=== PATIENT | female | born 1990 | race Two or more races ===

== ENCOUNTER 2020-04-10 13:03 | Emergency (ER) | payer OTHER, SELFPAY ==
[2020-04-10 13:24] VITALS: BP 114/65; PULSE 81; RESP 17; TEMP 36.3; O2SAT 95; BMI 38.4
--- NOTE | 2020-04-10 13:49 | ED.GENADULT ---
HPI - General Adult General Chief complaint: General Medical Stated complaint: rash Time Seen by Provider: 04/10/20 13:46 Source: patient Mode of arrival: ambulatory Limitations: no limitations History of Present Illness HPI narrative: 29 y/o healthy female presenting with hives all over her arms that started this morning when she woke up. She states she had a small itchy patch on her face yesterday and took a benadryl with some improvement. She denies new lotions, creams, soaps or detergents but she did sleep at a friend's house on . complaint: rash Onset (ago): day(s) (1) Location: face and upper extremity Radiation: non-radiation Severity: moderate Quality: burning Pain Consistency: constant Relieving factors: cold therapy and medication Exacerbating factors: other (itching makes it worse ) Associated symptoms: denies other symptoms Treatments prior to arrival: none Related Data Previous Rx's Medication Instructions Recorded diphenhydramine HCl [Benadryl 50 mg PO Q6H PRN #10 tab 04/10/20 Allergy] prednisone 50 mg PO DAILY #5 tab 04/10/20 Allergies Allergy/AdvReac Type Severity Reaction Status Date / Time MOSQUITO BITE Allergy Intermediate BODY PART Uncoded 01/29/20 16:08 SWELLING hazelnuts and mosquitos Allergy Unknown itchy/ Uncoded 11/16/17 00:00 swelling mosquitoes Allergy Unknown severe Uncoded 10/01/18 00:00 local reaction Review of Systems Review of Systems: Constitutional: No Fever, No Chills ENT/Mouth: No sore throat, No Rhinorrhea, No Swallowing Difficulty Eyes: No Eye Pain, No Swelling, No Redness Cardiovascular: No Chest Pain, No SOB Respiratory: No Cough, No Sputum, No Wheezing, No dyspnea Gastrointestinal: No Nausea, No Vomiting, No Diarrhea, No abdominal Pain Musculoskeletal: No joint pain, No Myalgias Skin: No Skin Lesions, + rash Neuro: No Weakness, No Numbness, No Dizziness, No Headache Heme/Lymph: No Bruising, No Lymphadenopathy PMFSH Past Medical History Attestation statement: The following information was validated with the patient. Medical History No known health problems Social History Social History Advance Directives: No Advance Directives Information Provided: No Physical Exam Vital Signs: Vital Signs: Last Vital Signs Temp 97.4 F 04/10/20 13:24 Pulse 81 04/10/20 13:24 Resp 17 04/10/20 13:24 BP 114/65 04/10/20 13:24 Pulse Ox 95 04/10/20 13:24 Body Mass Index 38.4 Appearance: Alert. Oriented X3. No acute distress. HEENT: normal inspection CVS: Normal heart rate and rhythm. Pulses normal. Respiratory: No respiratory distress. Skin: Skin warm and dry. Normal skin color. Normal skin turgor.. Extremities: bilateral upper extremities with multiple areas of urticarial rash, erythematous and pruritus. Neuro: Oriented X 3. No motor deficit. No sensory deficit. Course Course Course Narrative: 29 y/o female presenting with UE hives after exposure to new bedding. No history of the same. No respiratory complaints, mouth/face swelling. Will give dose of Benadryl and Prednisone here and monitor. Reevaluation(s) Reevaluation #1: itching improved after benadryl and prednisone. stable for d/c. Discharge Plan Discharge Clinical Impression: Urticaria Patient Disposition: Home, Self-Care Instructions: Urticaria (ED) Additional Instructions: Use hypoallergenic soaps and detergents until the rash resolves. Do not use perfume or scented lotions. Take Benadryl every 6 hours until rash is resolved. Start taking the Prednisone tomorrow morning, you were given your 1st dose in the ER. Follow up with your doctor on Sunday. If you develop wheezing, shortness of breath, swelling of your lips or tongue, or any other concerning symptom come back to the ER for further evaluation. Prescriptions: New prednisone 50 mg tablet 50 mg PO DAILY Qty: 5 RF: 0 diphenhydramine HCl [Benadryl Allergy] 25 mg tablet 50 mg PO Q6H PRN (Reason: itching) Qty: 10 RF: 0 Interventions: ED Discharge Assessment Last Done: 04/10/20 14:11
[2020-04-10] MEDS: diphenhydrAMINE HCL 25 MG TABLET 50 MG PO (14:00)
[2020-04-10] MEDS: predniSONE 10 MG TABLET 50 MG PO (14:01)
== END 2020-04-10 14:13 | disposition home or self-care (01) ==
PROVIDERS: Emergency Provider Internal Medicine; PCP Nurse Practitioner Family
DX: L50.9 Urticaria, unspecified (principal); R21 Rash and other nonspecific skin eruption; Z79.899 Other long term (current) drug therapy
CPT/HCPCS: 99283; Q0163

== ENCOUNTER 2020-11-29 15:19 | Emergency (ER) | payer OTHER, SELFPAY ==
[2020-11-29 15:41] VITALS: BP 114/73; PULSE 76; RESP 18; TEMP 37.1; O2SAT 98; BMI 36.1
--- NOTE | 2020-11-29 17:03 | ED_ITS ---
HPI - Female Genitourinary General Chief complaint: Vaginal Bleeding Stated complaint: Vaginal bleeding Time Seen by Provider: 11/29/20 16:50 Source: patient Mode of arrival: ambulatory Limitations: no limitations History of Present Illness HPI Narrative: 30 y/o female who presents to the ER with 3 weeks of vaginal bleeding. She reports having a nuva ring placed by her PCP at [facility] 1 month ago. She started bleeding 1 week later. It started light and now is heavier. She has some intermittent lower abdominal cramping as well. She denies vaginal discharge. No lightheadedness, dizziness or SOB. She tried to take out the nuva ring but would not find it and thinks it got displaced. She last had sex after it was placed, but before she started bleeding. Denies it falling out. She has been feeling nauseated but has not vomited. Denies chance of . MD elicited complaint: vaginal bleeding Onset (ago): week(s) (3) Location of symptoms: vaginal Severity: moderate Female Urogenital Radiation: Non-Radiating Severity scale (1-10): 6 Quality of pain: aching Consistency: intermittent Vaginal discharge: none Vaginal bleeding: moderate Urinary symptoms: Dysuria and Hematuria Exacerbating factors: none Relieving factors: none Associated symptoms: nausea Treatment prior to arrival: none Sexual activity: Yes (3.5 weeks ago) Patient : No Related Data Previous Rx's Medication Instructions Recorded diphenhydramine HCl [Benadryl 50 mg PO Q6H PRN #10 tab 04/10/20 Allergy] prednisone 50 mg PO DAILY #5 tab 04/10/20 cefuroxime axetil 250 mg PO BID #10 tab 11/29/20 ondansetron HCl [Zofran] 4 mg PO Q8H PRN #7 tab 11/29/20 Allergies Allergy/AdvReac Type Severity Reaction Status Date / Time MOSQUITO BITE Allergy Intermediate BODY PART Uncoded 01/29/20 16:08 SWELLING hazelnuts and mosquitos Allergy Unknown itchy/ Uncoded 11/16/17 00:00 swelling mosquitoes Allergy Unknown severe Uncoded 10/01/18 00:00 local reaction Review of Systems Review of Systems: Constitutional: No Fever, No Chills ENT/Mouth: No sore throat, No Rhinorrhea, No Swallowing Difficulty Cardiovascular: No Chest Pain, No SOB, No Orthopnea, No Edema Respiratory: No Cough, No Sputum, No Wheezing, No dyspnea Gastrointestinal: No Nausea, No Vomiting, No Diarrhea, No abdominal Pain, No Hematochezia, No Melena Genitourinary: + Dysuria, No Urinary Frequency, + Hematuria , +vaginal bleeding Musculoskeletal: No joint pain, No Myalgias Skin: No Skin Lesions, No rash Neuro: No Weakness, No Numbness, No Dizziness, No Headache Psych: + Anxiety/Panic, No Depression Heme/Lymph: No Bruising, No Lymphadenopathy [facility] Past Medical History Attestation statement: The following information was validated with the patient. Medical History No known health problems Social History Social History Alcohol intake: never Smoked in Last 30 Days: No Use of substances other than those prescribed or required for medical reasons: No Advance Directives: No Advance Directives Information Provided: No Patient : No Physical Exam Vital Signs: Vital Signs: Last Vital Signs Temp 98.7 F 11/29/20 15:41 Pulse 76 11/29/20 15:41 Resp 18 11/29/20 15:41 BP 114/73 11/29/20 15:41 Pulse Ox 98 11/29/20 15:41 Body Mass Index 36.1 Const: General: cooperative, healthy appearing, comfortable and no acute distress HENMT: Head: Yes normal to inspection Ears: hearing grossly normal bilaterally General nose exam: Normal external nose present Face and sinus: Yes normal facial exam Mouth: Normal oral and palatal mucosa present, lip normal and tongue normal Eyes: General: appearance normal, both eyes and all related structures Neck: Neck: Yes normal visual inspection Chest: Chest palpation & inspection: normal inspection of the chest Resp: Effort & Inspection: normal respiratory effort and able to speak in complete sentences Auscultation: clear to auscultation bilaterally Cardio: Rate: regular rate Rhythm: regular rhythm Heart sounds: S1 normal heart sound present and S2 normal heart sound present GI: Inspection: Yes normal to inspection Palpation (GI): Soft to palpation, nontender and no guarding Percussion: Yes normal to percussion Auscultation: normal bowel sounds : External Female Exam: normal external appearance Speculum Exam - Vagina: normal palpation, normal vaginal discharge, no lacerations and vaginal bleeding Speculum Exam - Cervix: normal appearance of the cervix, Cervical os open and nontender Bimanual exam- vagina & uterus: normal bimanual exam, normal palpation and No Cervical tenderness present OB/external & speculum: Cervical os open and vaginal bleeding Skin: General skin exam: no rashes or lesions noted Extrem: General: Yes normal to inspection Course Course Course Narrative: 30 y/o female presenting with vaginal bleeding x3 weeks after Nuva ring insertion 1 month ago. No Nuva ring was found on examination. Mild- moderate vaginal bleeding on exam without clots. Will check H/H and basic labs. Will also r/o . She is c/o dysuria so will check UA as well. Reevaluation(s) Reevaluation #1: H/H is normal. negative. We discussed possibly giving trial of Provera however she will hold off for now and follow up with her doctor. Her UA is positive, will treat with Ceftin. Patient is agreeable with plan and will come back to the ER if symptoms worsen. MDM - Female Genitourinary Lab Data Result diagrams: 11/29/20 17:35 11/29/20 17:35 Labs: Lab Results 11/29/20 11/29/20 11/29/20 Range/Units 17:35 17:35 17:35 WBC 10.6 (4.8-10.8) X10*3/uL RBC 4.75 (4.20-5.50) X10*6/uL Hgb 14.0 (12.0-16.0) g/dl Hct 42.2 (37-47) % MCV 88.8 (80-98) fL MCH 29.5 (27.0-33.0) pg MCHC 33.2 (31.0-35.0) g/dl RDW 12.7 (11.0-16.0) % Plt Count 288 (160-400) X10*3/uL MPV 9.8 (9.4-12.3) fL Absolute Nucleated RBC 0.000 (0.0-0.012) X10*3/uL Nucleated RBC % (auto) 0.0 (0.0-0.2) /100WBC Sodium 140 (135-145) mmol/L Potassium 3.9 (3.3-5.1) mmol/L Chloride 107 (96-108) mmol/L Carbon Dioxide 26 (22-29) mmol/L Anion Gap 11 L (12-20) BUN 9 (9-16) mg/dL Creatinine 0.79 (0.5-1.4) mg/dL Estim Creat Clear Calc 140.8 Estimated GFR > 60 Random Glucose 99 (60-115) mg/dL Calcium 9.2 (8.4-10.2) mg/dL Beta HCG, Quant < 2 mIU/mL Urine Color Urine Appearance Urine pH (5.0-8.0) Ur Specific [place] (1.005-1.025) Urine Protein (NEG-TRACE) MG/DL Urine Glucose (UA) (NEG) MG/DL Urine Ketones (NEG) MG/DL Urine Blood (NEG) Urine Nitrite (NEG) Ur Leukocyte Esterase (NEG) Urine RBC (0) /HPF Urine WBC (0-4) /HPF Ur Squamous Epith Cells /LPF Urine Bacteria /LPF 11/29/20 Range/Units 19:47 WBC (4.8-10.8) X10*3/uL RBC (4.20-5.50) X10*6/uL Hgb (12.0-16.0) g/dl Hct (37-47) % MCV (80-98) fL MCH (27.0-33.0) pg MCHC (31.0-35.0) g/dl RDW (11.0-16.0) % Plt Count (160-400) X10*3/uL MPV (9.4-12.3) fL Absolute Nucleated RBC (0.0-0.012) X10*3/uL Nucleated RBC % (auto) (0.0-0.2) /100WBC Sodium (135-145) mmol/L Potassium (3.3-5.1) mmol/L Chloride (96-108) mmol/L Carbon Dioxide (22-29) mmol/L Anion Gap (12-20) BUN (9-16) mg/dL Creatinine (0.5-1.4) mg/dL Estim Creat Clear Calc Estimated GFR Random Glucose (60-115) mg/dL Calcium (8.4-10.2) mg/dL Beta HCG, Quant mIU/mL Urine Color BROWN Urine Appearance CLOUDY Urine pH 6.0 (5.0-8.0) Ur Specific [place] >= 1.030 H (1.005-1.025) Urine Protein 2+ H (NEG-TRACE) MG/DL Urine Glucose (UA) NEG (NEG) MG/DL Urine Ketones NEG (NEG) MG/DL Urine Blood 3+ H (NEG) Urine Nitrite POS H (NEG) Ur Leukocyte Esterase NEG (NEG) Urine RBC TNTC H (0) /HPF Urine WBC 0-2 (0-4) /HPF Ur Squamous Epith Cells 1+ /LPF Urine Bacteria 3+ /LPF Discharge Plan Discharge Clinical Impression: Vaginal bleeding UTI (urinary tract infection) Qualifiers: Urinary tract infection type: acute cystitis Hematuria presence: with hematuria Qualified Code(s): N30.01 - Acute cystitis with hematuria Patient Disposition: Home, Self-Care Instructions: Dysfunctional Uterine Bleeding (ED), Urinary Tract Infection in Women (ED) Additional Instructions: Your blood counts were normal. No anemia., Your urine test showed infection. Recommend taking the prescribed antibiotics as directed. Follow up with your doctor this week. Recommend following up with pyrotechnic mixer - name and number provided below. If you develop new or worsening symptoms call 911 or come back to the ER for further evaluation. Prescriptions: New cefuroxime axetil 250 mg tablet 250 mg PO BID Qty: 10 RF: 0 ondansetron HCl [Zofran] 4 mg tablet 4 mg PO Q8H PRN (Reason: nausea and vomiting) Qty: 7 RF: 0 No Action prednisone 50 mg tablet 50 mg PO DAILY Qty: 5 RF: 0 diphenhydramine HCl [Benadryl Allergy] 25 mg tablet 50 mg PO Q6H PRN (Reason: itching) Qty: 10 RF: 0 Referrals: Shahriar Ohara MD [Physician] - 2 days (3 weeks vaginal bleeding)
[2020-11-29] MEDS: 0.9 % Sodium Chloride 1,000 ML 999 ML IVCONT (17:38)
[2020-11-29 17:42] LABS: Hematocrit 42.2 % (37-47); Mean Corpuscular HGB Conc 33.2 g/dl (31.0-35.0); Mean Corpuscular Hemoglobin 29.5 pg (27.0-33.0); Mean Corpuscular Volume 88.8 fL (80-98); Mean Platelet Volume 9.8 fL (9.4-12.3); Platelet Count 288 X10*3/uL (160-400); Red Blood Count 4.75 X10*6/uL (4.20-5.50); Red Cell Distribution Width 12.7 % (11.0-16.0); White Blood Count 10.6 X10*3/uL (4.8-10.8)
[2020-11-29 18:08] LABS: Anion Gap 11 (12-20); Blood Urea Nitrogen 9 mg/dL (9-16); Calcium 9.2 mg/dL (8.4-10.2); Carbon Dioxide 26 mmol/L (22-29); Chloride 107 mmol/L (96-108); Creatinine Clr Calc Pharmacy 140.8; Estimated Glomerular Filt Rate > 60; Glucose Random 99 mg/dL (60-115); Potassium 3.9 mmol/L (3.3-5.1); Sodium 140 mmol/L (135-145)
[2020-11-29 18:14] LABS: HCG Quantitative < 2 mIU/mL
[2020-11-29 19:55] LABS: Glucose Urine UA NEG (NEG); Leukocyte Esterase Urine NEG (NEG); Nitrite Urine POS (NEG); Specific Gravity - Urine >= 1.030 (1.005-1.025); UACC Culture Trigger YES; Urine Blood 3+ (NEG); Urine Ketones NEG (NEG); Urine Protein 2+ MG/DL (NEG-TRACE)
[2020-11-29 19:57] LABS: Appearance Urine CLOUDY; Color Urine BROWN
[2020-11-29 20:00] VITALS: BP 119/77; PULSE 71; RESP 16; TEMP 36.9; O2SAT 97
[2020-11-29 20:14] LABS: Bacteria Urine 3+ /LPF; RBC Urine TNTC /HPF (0); Squamous Epithelial Cell Urine 1+ /LPF; WBC Urine 0-2 /HPF (0-4)
== END 2020-11-29 20:31 | disposition home or self-care (01) ==
PROVIDERS: Physician Assistant; Emergency Provider Emergency Medicine; PCP Nurse Practitioner
DX: N30.01 Acute cystitis with hematuria (principal)
CPT/HCPCS: 36415; 80048; 81001; 81003; 84702; 85027; 87086; 87088; 87186; 96360; 99284

== ENCOUNTER 2021-02-01 10:38 | Emergency (ER) | payer OTHER, SELFPAY ==
--- NOTE | 2021-02-01 | ECG_ITS ---
Test Reason : ABNORMAL EKG Blood Pressure : / mmHG Vent. Rate : 073 BPM Atrial Rate : 073 BPM P-R Int : 136 ms QRS Dur : 080 ms QT Int : 376 ms P-R-T Axes : 036 -07 -03 degrees QTc Int : 414 ms Normal sinus rhythm Normal ECG No previous ECGs available Referred By: Generic ED Physician Electronically Signed By:GÓMEZ COMBS
[2021-02-01 10:48] VITALS: BP 119/78; PULSE 82; RESP 16; TEMP 36.8; O2SAT 97; BMI 33.3
--- NOTE | 2021-02-01 11:34 | ED_ITS ---
HPI - Headache General Chief Complaint: Headache Stated Complaint: abn ekg, lt side head pain Time Seen by Provider: 02/01/21 11:31 Source: patient Mode of arrival: ambulatory Limitations: no limitations History of Present Illness HPI Narrative: 30-year-old female came in for evaluation of left-sided neck pain. Patient started to have left-sided neck pain about 10 days ago radiate up to the the back of the head and down to the left side of left shoulder and left arm, describing as severe throbbing pain, constant more at night time, worsening with movement or turning the head to either side, sometimes feeling numbness in the left arm. No trauma to the neck, no history of heavy lifting, never injured this symptoms in the past. Patient was seen at walk-in clinic yesterday had an EKG thought to be abnormal EKG patient was sent to [facility] for further evaluation patient left without seen because a long waiting time. Patient takes Advil for pain with no relief. Related Data Previous Rx's Medication Instructions Recorded diphenhydramine HCl 25 mg tablet 50 mg PO Q6H PRN #10 tab 04/10/20 (Benadryl Allergy) prednisone 50 mg tablet 50 mg PO DAILY #5 tab 04/10/20 cefuroxime axetil 250 mg tablet 250 mg PO BID #10 tab 11/29/20 ondansetron HCl 4 mg tablet 4 mg PO Q8H PRN #7 tab 11/29/20 (Zofran) amoxicillin 400 mg/5 mL oral 400 mg PO Q12H #75 ml 02/01/21 suspension Allergies Allergy/AdvReac Type Severity Reaction Status Date / Time MOSQUITO BITE Allergy Intermediate BODY PART Uncoded 01/29/20 16:08 SWELLING hazelnuts and mosquitos Allergy Unknown itchy/ Uncoded 11/16/17 00:00 swelling mosquitoes Allergy Unknown severe Uncoded 10/01/18 00:00 local reaction Review of Systems Review of Systems: All other systems are reviewed and are negative Constitutional: Reports as per HPI and Reports no additional constitutional complaints Eyes: Reports as per HPI and Reports no additional eye complaints Reports system reviewed and no additional complaints, except as documented Cardiovascular: Reports as per HPI and Reports no additional cardiovascular complaints Respiratory: Reports as per HPI and Reports no additional respiratory complaints Gastrointestinal: Reports as per HPI and Reports no additional gastrointestinal complaints Genitourinary: Reports no additional female genitourinary complaints Musculoskeletal: Reports no additional musculoskeletal complaints Skin/Breast: Reports system reviewed and no additional complaints, except as docu Psychiatric: Reports no additional psychiatric complaints Endocrine: Reports no additional endocrine complaints Hematologic/Lymphatic: Reports no additional hematologic/lymphatic complaints Allergic/Immunologic: Reports no additional allergic/immunologic complaints Reports system reviewed and no additional complaints, except as documented and Reports Abnormal speech present [facility] Past Medical History Medical History No known health problems Social History Social History Alcohol intake: never Advance Directives: No Patient : No Physical Exam Vital Signs: Vital Signs: Last Vital Signs Temp 98.2 F 02/01/21 10:48 Pulse 82 02/01/21 10:48 Resp 16 02/01/21 10:48 BP 119/78 02/01/21 10:48 Pulse Ox 97 02/01/21 10:48 Body Mass Index 33.3 Vital signs have been reviewed as appeared to be correct. Blood pressure normal. Heart rate normal. Respiration rate normal. Temperature normal. Oxyg en saturation normal. Appearance: Alert. Oriented X3. No acute distress. Head: Normal external exam. Normocephalic. Atraumatic. No Gonzalez signs noted. No raccoon eyes noted Eyes: PERRLA. EOMI. Conjunctiva and sclera normal. Eyelids normal. ENT: Left TM is erythematous. Pharynx normal. Uvula midline. Moist mucous membranes. No trismus noted. No drooling noted. No muffled voice noted. Neck: Normal inspection. Neck supple. FROM but limited due to pain mostly on the left side, increased pain when turned to the right side and pain radiates down to the back of the left shoulder and left arm. No adenopathy. Thyroid Normal. No meningeal signs. No neck mass noted. CVS: Normal heart rate and rhythm. Heart sound normal. No murmurs noted. Pulses normal throughout. Respiratory: No respiratory distress. Painless inspiration. Breath sounds normal. No wheezes/rales/rhonchi noted. Chest nontender. No accessory muscle usage noted or decreased air movement noted. Abdomen: Soft and nontender. Bowel sounds normal in all 4 quadrants. No distention noted. No organomegaly noted. No visible injury noted. Back: No CVA tenderness. Full range of motion noted. Skin: Skin warm and dry. Normal skin color. Normal skin turgor. No rashes/lesions/lacerations noted. Extremities: No lower extremity edema. Extremities exhibit normal range of motion. Extremities nontender. Neuro: Oriented X 3. Cranial nerve exam: II-XII are grossly intact No motor deficit. No sensory deficit. Reflexes normal. Course Course Course Narrative: Assessment and plan: 30-year-old female came in with neck/a headache pain started about 2 weeks ago, physical exam is consistent with left-sided cervical radiculopathy, finding also is consistent with left otitis media. As discussed with the patient rest, heating pad, NSAIDs, avoid strenuous activities. Reportedly patient had abnormal EKG at an urgent care yesterday repeat EKG today was unremarkable. Start the patient on amoxicillin for left ear infection, patient does not do well with swallowing pills will start on liquid form. MDM - Headache ECG Data Attestation: I personally reviewed and interpreted this ECG as follows: Interpretation: Normal sinus rhythm at 73 beats per minutes, normal intervals, no ST-T changes. Discharge Plan Discharge Clinical Impression: Cervical radiculopathy Otitis media Qualifiers: Otitis media type: unspecified Laterality: left Qualified Code(s): H66.92 - Otitis media, unspecified, left ear Patient Disposition: Home, Self-Care Instructions: Ear Infection (ED), Cervical Radiculopathy (ED) Additional Instructions: Take liquid ibuprofen 600 mg by mouth every 8 hours if needed for pain. Prescriptions: New amoxicillin 400 mg/5 mL suspension for reconstitution 400 mg PO Q12H Qty: 75 RF: 0 No Action prednisone 50 mg tablet 50 mg PO DAILY Qty: 5 RF: 0 diphenhydramine HCl [Benadryl Allergy] 25 mg tablet 50 mg PO Q6H PRN (Reason: itching) Qty: 10 RF: 0 cefuroxime axetil 250 mg tablet 250 mg PO BID Qty: 10 RF: 0 ondansetron HCl [Zofran] 4 mg tablet 4 mg PO Q8H PRN (Reason: nausea and vomiting) Qty: 7 RF: 0 Referrals: [facility] [Primary Care Provider] - 2 days Stand Alone Forms: Work/School Release
[2021-02-01] MEDS: Ibuprofen Oral Susp 200 MG/10 ML ORAL.SUSP 600 MG PO (11:57)
== END 2021-02-01 12:04 | disposition home or self-care (01) ==
PROVIDERS: Emergency Provider Emergency Medicine
DX: M54.12 Radiculopathy, cervical region (principal); M54.2 Cervicalgia; R94.31 Abnormal electrocardiogram [ECG] [EKG]; H66.92 Otitis media, unspecified, left ear; Z79.899 Other long term (current) drug therapy
CPT/HCPCS: 93005; 99283; 99284

== ENCOUNTER 2021-08-14 10:54 | Emergency (ER) | payer OTHER, SELFPAY ==
--- NOTE | 2021-08-14 11:02 | ED.GENADULT ---
HPI - General Adult General Chief complaint: General Medical Stated complaint: NEEDS RING REMOVED FROM R RING FINGER Time Seen by Provider: 08/14/21 11:02 Source: patient Mode of arrival: ambulatory Limitations: no limitations History of Present Illness HPI narrative: 31-year-old female here seeking to have a ring removed from her right 4th digit. No injury or trauma Related Data Previous Rx's Medication Instructions Recorded diphenhydramine HCl 25 mg tablet 50 mg PO Q6H PRN #10 tab 04/10/20 (Benadryl Allergy) prednisone 50 mg tablet 50 mg PO DAILY #5 tab 04/10/20 cefuroxime axetil 250 mg tablet 250 mg PO BID #10 tab 11/29/20 ondansetron HCl 4 mg tablet 4 mg PO Q8H PRN #7 tab 11/29/20 (Zofran) amoxicillin 400 mg/5 mL oral 400 mg (5 mL) PO Q12H #75 ml 02/01/21 suspension Allergies Allergy/AdvReac Type Severity Reaction Status Date / Time MOSQUITO BITE Allergy Intermediate BODY PART Uncoded 01/29/20 16:08 SWELLING hazelnuts and mosquitos Allergy Unknown itchy/ Uncoded 11/16/17 00:00 swelling mosquitoes Allergy Unknown severe Uncoded 10/01/18 00:00 local reaction Review of Systems Review of Systems: Yes all other systems are reviewed and are negative Constitutional: Constitutional: Reports no additional constitutional complaints, Denies body ache(s), Denies chills, Denies fever(s), Denies headache(s) and Denies weakness Eyes: Eyes: Reports no additional eye complaints and Denies change in vision ENT: Reports system reviewed and no additional complaints, except as documented, Denies dizziness, Denies headache(s), Denies nasal congestion, Denies nasal discharge and Denies neck pain Cardiovascular: Cardiovascular: Reports no additional cardiovascular complaints, Denies chest pain, Denies leg edema and Denies dyspnea Respiratory: Respiratory: Reports no additional respiratory complaints, Denies cough and Denies dyspnea Gastrointestinal: Gastrointestinal: Reports no additional gastrointestinal complaints, Denies abdominal pain, Denies diarrhea, Denies nausea and Denies vomiting Genitourinary: Genitourinary: Reports no additional female genitourinary complaints and Denies urinary incontinence Musculoskeletal: Musculoskeletal: Reports no additional musculoskeletal complaints, Denies back pain, Denies arthralgias, Denies joint swelling, Denies neck pain, Denies numbness and Denies tingling Integumentary/Breasts: Skin/Breast: Reports system reviewed and no additional complaints, except as docu and Denies rash Neurologic: Reports system reviewed and no additional complaints, except as documented, Denies dizziness, Denies headache(s), Denies numbness, Denies tingling and Denies weakness PMF Past Medical History Attestation statement: The following information was validated with the patient. Source: old records reviewed and nursing notes reviewed Medical History No known health problems Social History Social History Alcohol intake: unknown Patient Tobacco Use Status: Tobacco use Unknown Advance Directives: No Advance Directives Information Provided: No Patient : No Physical Exam ED Vital Signs: Vital Signs - 24 hr 08/14/21 11:04 Temperature 97.8 F Pulse Rate 65 Respiratory Rate 18 Blood Pressure 109/70 Pulse Oximetry 99 BMI result Body Mass Index 32.5 Const General: healthy appearing Orientation/consciousness: patient oriented x3 Limitations: no limitations HENMT Head: Yes normal to inspection Ears: hearing grossly normal bilaterally Eyes General: appearance normal, both eyes and all related structures Neck Neck: Yes normal visual inspection Chest Chest palpation & inspection: normal inspection of the chest Resp Effort & Inspection: normal respiratory effort Skin General skin exam: no rashes or lesions noted Neuro General: patient oriented x3 and moves all extremities Cognition (Neuro): normal cognition Course Course Course Narrative: Patient here seeking removal from right 4th digit after her ring that was stuck. No injury or trauma. Ring removed by nursing with patient's consent. Medical Decision Making Medical Records Medical records reviewed: Yes I reviewed the patient's medical records. Lab Data Lab results reviewed: Yes I reviewed the patient's lab results. Discharge Plan Discharge Clinical Impression: Finger swelling Patient Disposition: Home, Self-Care Instructions: Normal Exam (ED) Additional Instructions: You were here for ring removal Prescriptions: No Action prednisone 50 mg tablet 50 mg PO DAILY Qty: 5 0RF diphenhydramine HCl [Benadryl Allergy] 25 mg tablet 50 mg PO Q6H PRN (Reason: itching) Qty: 10 0RF amoxicillin 400 mg/5 mL suspension for reconstitution 400 mg PO Q12H Qty: 75 0RF cefuroxime axetil 250 mg tablet 250 mg PO BID Qty: 10 0RF ondansetron HCl [Zofran] 4 mg tablet 4 mg PO Q8H PRN (Reason: nausea and vomiting) Qty: 7 0RF Interventions: ED Discharge Assessment Last Done: 08/14/21 11:12 Discharge Date/Time: 08/14/21 11:17
[2021-08-14 11:04] VITALS: BP 109/70; PULSE 65; RESP 18; TEMP 36.6; O2SAT 99; BMI 32.5
--- NOTE | 2021-08-14 11:05 | PC.NURSE ---
SILVER RING REMOVED WITH RING CUTTER TO RIGHT HAND 4TH FINGER. PT TOLERATED PROCEDURE WELL.
== END 2021-08-14 11:17 | disposition home or self-care (01) ==
PROVIDERS: Emergency Provider Emergency Medicine
DX: M79.89 Other specified soft tissue disorders (principal); M79.644 Pain in right finger(s); Z79.899 Other long term (current) drug therapy
CPT/HCPCS: 99283

== ENCOUNTER 2021-09-06 19:14 | Emergency (ER) | payer OTHER, SELFPAY ==
[2021-09-06] MEDS: Acetaminophen Oral Liquid 650 MG/20.3 ML SOLUTION PO (19:29)
[2021-09-06 19:31] VITALS: BP 149/76; PULSE 109; RESP 19; TEMP 39.1; O2SAT 98; BMI 34.6
[2021-09-06 19:59] LABS: COVID-19 Test Negative (Negative); IDNOW Serial# 16C4AD1C; Influenza A Positive (Negative); Influenza B2 Negative (Negative)
[2021-09-06] MEDS: Ibuprofen 800 MG TABLET PO (20:36)
[2021-09-06 20:40] VITALS: BP 117/68; PULSE 108; RESP 17; TEMP 37.3; O2SAT 95
--- NOTE | 2021-09-06 20:41 | PC.NURSE ---
FLU SYMPTOMS STARTED YESTERDAY. RESP UNLABORED. FEVER IMPROVED AFTER TYLENOL. MED WITH MOTRIN AND JUDY CURT GIVEN.
--- NOTE | 2021-09-06 20:46 | ED_ITS ---
HPI - General Adult General Chief complaint: General Medical Stated complaint: flu like symptoms Time Seen by Provider: 09/06/21 20:24 Source: patient Mode of arrival: ambulatory Limitations: no limitations History of Present Illness HPI narrative: 31-year-old female presents to ED for body aches, cough, fever, and fatigue since last night. Patient unaware of anyone around her being sick. Patient denies any chest pain or shortness of breath. Related Data Previous Rx's Medication Instructions Recorded diphenhydramine HCl 25 mg tablet 50 mg PO Q6H PRN #10 tab 04/10/20 (Benadryl Allergy) prednisone 50 mg tablet 50 mg PO DAILY #5 tab 04/10/20 cefuroxime axetil 250 mg tablet 250 mg PO BID #10 tab 11/29/20 ondansetron HCl 4 mg tablet 4 mg PO Q8H PRN #7 tab 11/29/20 (Zofran) amoxicillin 400 mg/5 mL oral 400 mg (5 mL) PO Q12H #75 ml 02/01/21 suspension oseltamivir 75 mg capsule (Tamiflu) 75 mg PO Q12H 5 Days #10 cap 09/06/21 Allergies Allergy/AdvReac Type Severity Reaction Status Date / Time MOSQUITO BITE Allergy Intermediate BODY PART Uncoded 09/06/21 19:31 SWELLING hazelnuts and mosquitos Allergy Unknown itchy/ Uncoded 09/06/21 19:31 swelling mosquitoes Allergy Unknown severe Uncoded 09/06/21 19:31 local reaction Review of Systems Review of Systems: Fever, body aches, cough,and fatigue Yes all other systems are reviewed and are negative PMFSH Past Medical History Medical History No known health problems Social History Social History Alcohol intake: unknown Patient Tobacco Use Status: Tobacco use Unknown Advance Directives: No Advance Directives Information Provided: No Physical Exam ED Vital Signs: Vital Signs - 24 hr 09/06/21 19:31 09/06/21 20:40 Temperature 102.4 F H 99.2 F Pulse Rate 109 H 108 H Respiratory Rate 19 17 Blood Pressure 149/76 H 117/68 Pulse Oximetry 98 95 BMI result Body Mass Index 34.6 Const General: cooperative, healthy appearing, comfortable, no acute distress, well developed, alert, awake and Physically active Orientation/consciousness: patient oriented x3 HENRI Head: Yes normal to inspection, Yes No palpable skull fracture present, Yes normocephalic, Yes atraumatic and No abrasion Ears: hearing grossly normal bilaterally, external ears normal, TM's normal bilaterally, EAC's normal, mastoids normal and no periauricular adenopathy Eyes General: appearance normal, both eyes and all related structures Neck Neck: Yes normal visual inspection, Yes full ROM, Yes no lymphadenopathy, Yes no meningeal signs, Yes trachea midline, Yes supple, No anterior neck swelling and No tender Chest Chest palpation & inspection: normal inspection of the chest and normal palpation of entire chest wall Resp Effort & Inspection: normal respiratory effort and able to speak in complete sentences Auscultation: clear to auscultation bilaterally Cardio Jugular venous distension: no JVD Heart sounds: S1 normal heart sound present and S2 normal heart sound present GI Inspection: Yes normal to inspection and No abdominal wall ecchymosis Palpation (GI): Soft to palpation, not firm, nontender, no guarding and not rigid General: No CVA tenderness and Yes no CVA tenderness Back/Spine/Pelvis Back: no CVA tenderness, No CVA tenderness and No back tenderness Skin General skin exam: no rashes or lesions noted and elasticity normal Neuro General: patient oriented x3, gait normal, tone normal, moves all extremities, no meningeal signs, no focal motor deficits, CN's II-XI intact bilaterally and deep tendon reflexes 2+ bilaterally Extrem General: Yes normal to inspection and Yes full ROM Psych Appearance: grossly normal, well kempt and not disheveled Course Course Course Narrative: COVID influenza ordered. Reevaluation(s) Reevaluation #1: Patient influenza positive. Patient vital signs improved. Patient discharged with Tamiflu Time: 20:51 Medical Decision Making [facility] Narrative Medical decision making narrative: Influenza a Lab Data Labs: Lab Results 09/06/21 09/06/21 Range/Units 19:31 19:31 COVID-19 (LEBRON) Negative (Negative) COVID-19 Clin Com See Note Influenza Type A (BRIAN) Positive A (Negative) Influenza Type B (BRIAN) Negative (Negative) Influenza A & B Note See Note Discharge Plan Discharge Clinical Impression: Influenza A Patient Disposition: Home, Self-Care Instructions: Influenza (ED) Additional Instructions: You came back positive for the flu. You will be discharged with Tamiflu. Return to ED for any chest pain, shortness of breath, coughing up blood, weakness, dizziness, or any other concerning symptoms. Please follow up [facility] PCP Prescriptions: New oseltamivir [Tamiflu] 75 mg capsule 75 mg PO Q12H 5 Days Qty: 10 0RF No Action prednisone 50 mg tablet 50 mg PO DAILY Qty: 5 0RF diphenhydramine HCl [Benadryl Allergy] 25 mg tablet 50 mg PO Q6H PRN (Reason: itching) Qty: 10 0RF amoxicillin 400 mg/5 mL suspension for reconstitution 400 mg PO Q12H Qty: 75 0RF cefuroxime axetil 250 mg tablet 250 mg PO BID Qty: 10 0RF ondansetron HCl [Zofran] 4 mg tablet 4 mg PO Q8H PRN (Reason: nausea and vomiting) Qty: 7 0RF Stand Alone Forms: Work/School Release Interventions: ED Discharge Assessment Last Done: 09/06/21 21:04 Discharge Date/Time: 09/06/21 21:05 Print Language: Syriac
== END 2021-09-06 21:05 | disposition home or self-care (01) ==
PROVIDERS: Emergency Provider Emergency Medicine; PCP Nurse Practitioner
DX: J10.1 Influenza due to other identified influenza virus with other respiratory manifestations (principal); Z20.822 Contact with and (suspected) exposure to COVID-19
CPT/HCPCS: 87502; 87635; 99283; 99284

== ENCOUNTER 2021-11-18 16:19 | Emergency (ER) | payer OTHER, SELFPAY ==
--- NOTE | ~2021-11-18 | XR_ITS ---
EXAMINATION: XR SHOULDER, LEFT CLINICAL INFORMATION: Fall, limited range of motion COMPARISON: None TECHNIQUE: Three views of the left shoulder. FINDINGS: No acute fracture or dislocation. Joint spaces are maintained. Soft tissues are unremarkable. XR/XR shoulder LT min 2V IMPRESSION: No acute osseous abnormality.
[2021-11-18 16:28] VITALS: BP 122/68; PULSE 83; RESP 18; TEMP 36.2; O2SAT 100; BMI 33.2
--- NOTE | 2021-11-18 17:26 | ED.EXTPRO ---
HPI - Extremity Problem General Chief complaint: Extremity Injury, Upper Stated complaint: left shoulder pain-injured at work Time Seen by Provider: 11/18/21 17:26 History of Present Illness HPI Narrative: Patient fell at work 2 days ago on the job slipping and hyperextending her left shoulder and has had left shoulder pain since Related Data Previous Rx's Medication Instructions Recorded diphenhydramine HCl 25 mg tablet 50 mg PO Q6H PRN itching #10 tabs 04/10/20 (Benadryl Allergy) prednisone 50 mg tablet 50 mg PO DAILY #5 tabs 04/10/20 cefuroxime axetil 250 mg tablet 250 mg PO BID #10 tabs 11/29/20 ondansetron HCl 4 mg tablet 4 mg PO Q8H PRN nausea and 11/29/20 (Zofran) vomiting #7 tabs amoxicillin 400 mg/5 mL oral 400 mg (5 mL) PO Q12H #75 mL 02/01/21 suspension oseltamivir 75 mg capsule (Tamiflu) 75 mg PO Q12H 5 days #10 caps 09/06/21 acetaminophen 500 mg tablet 1,000 mg PO QID PRN pain #30 tabs 11/18/21 ibuprofen 600 mg tablet 600 mg PO Q6H PRN pain #20 tabs 11/18/21 Allergies Allergy/AdvReac Type Severity Reaction Status Date / Time MOSQUITO BITE Allergy Intermediate BODY PART Uncoded 09/06/21 19:31 SWELLING hazelnuts and mosquitos Allergy Unknown itchy/ Uncoded 09/06/21 19:31 swelling mosquitoes Allergy Unknown severe Uncoded 09/06/21 19:31 local reaction Review of Systems Review of Systems: Positive for left shoulder pain after a fall at work Negatives are no dizziness no fainting no head injury no headache no neck pain no numbness weakness or tingling no back pain no other extremity pains Yes all other systems are reviewed and are negative PMFSH Past Medical History Source: nursing notes reviewed Medical History No known health problems Social History Social History Alcohol intake: unknown Patient Tobacco Use Status: Tobacco use Unknown Advance Directives: No Advance Directives Information Provided: No Physical Exam Vital Signs: Vital Signs: Last Vital Signs Temp 97.2 F 11/18/21 16:28 Pulse 83 11/18/21 16:28 Resp 18 11/18/21 16:28 BP 122/68 11/18/21 16:28 Pulse Ox 100 11/18/21 16:28 O2 Del Method 11/18/21 16:28 BMI result Body Mass Index 33.2 General appearance is comfortable appearing no acute distress Head is normocephalic atraumatic Neck is supple nontender The back is full range of motion no tenderness Chest wall no tenderness no respiratory distress Extremities the left anterior lateral and posterior shoulder were tender to the touch, range of motion is limited on extension abduction and external rotation, skin is intact and normal there are no deformities or swelling, neurovascular intact distal, other extremities normal Course Course Course Narrative: Left shoulder x-ray was normal, the arm was tender around anterior lateral and posterior shoulder, no deformities neurovascular intact and patient is diagnosed with left shoulder sprain and will follow with [facility] Discharge Plan Discharge Clinical Impression: Sprain of left shoulder Patient Disposition: Home, Self-Care Additional Instructions: X-ray did not show any broken bone, your exam is consistent with injury to the soft tissue or possibly rotator cuff injury so you will need to follow-up with an orthopedist You may need to see [facility] for work related injury so call both and make sure when you call Orthopedics they know its work injury under workman's comp Limited use of sling as a few wear sling too much you lose muscle tone and range of motion Return any concerns Prescriptions: New acetaminophen 500 mg tablet 1,000 mg PO QID PRN (Reason: pain) Qty: 30 0RF ibuprofen 600 mg tablet 600 mg PO Q6H PRN (Reason: pain) Qty: 20 0RF No Action prednisone 50 mg tablet 50 mg PO DAILY Qty: 5 0RF diphenhydramine HCl [Benadryl Allergy] 25 mg tablet 50 mg PO Q6H PRN (Reason: itching) Qty: 10 0RF amoxicillin 400 mg/5 mL suspension for reconstitution 400 mg PO Q12H Qty: 75 0RF cefuroxime axetil 250 mg tablet 250 mg PO BID Qty: 10 0RF ondansetron HCl [Zofran] 4 mg tablet 4 mg PO Q8H PRN (Reason: nausea and vomiting) Qty: 7 0RF oseltamivir [Tamiflu] 75 mg capsule 75 mg PO Q12H 5 Days Qty: 10 0RF Referrals: [facility] [Provider Group] (Left shoulder work injury) Blayne Goldstein MD [Physician] - (Left shoulder injury, work related, possible rotator cuff) Interventions: ED Discharge Assessment Last Done: 11/18/21 17:35 Discharge Date/Time: 11/18/21 17:37
== END 2021-11-18 17:37 | disposition home or self-care (01) ==
PROVIDERS: Emergency Provider Internal Medicine; PCP Nurse Practitioner
DX: S43.402A Unspecified sprain of left shoulder joint, initial encounter (principal); W01.0XXA Fall on same level from slipping, tripping and stumbling without subsequent striking against object, initial encounter; Y93.89 Activity, other specified; Y92.218 Other school as the place of occurrence of the external cause; Y99.0 Civilian activity done for income or pay
CPT/HCPCS: 73030; 99282; 99283

== ENCOUNTER → 2021-11-21 09:06 | Outpatient (BNVA) | payer OTHER, SELFPAY | PROVIDERS: PCP Nurse Practitioner; Visit Provider Physician Assistant Medical | DX: S40.012A Contusion of left shoulder, initial encounter (principal); W01.0XXA Fall on same level from slipping, tripping and stumbling without subsequent striking against object, initial encounter | CPT/HCPCS: 99203 ==

== ENCOUNTER → 2021-12-05 14:50 | Outpatient (BNVA) | payer OTHER, SELFPAY | PROVIDERS: PCP Nurse Practitioner; Visit Provider Physician Assistant Medical | DX: S40.012A Contusion of left shoulder, initial encounter (principal); W01.0XXA Fall on same level from slipping, tripping and stumbling without subsequent striking against object, initial encounter | CPT/HCPCS: 99213 ==

== ENCOUNTER → 2021-12-13 14:52 | Outpatient (BNVA) | payer OTHER, SELFPAY | PROVIDERS: PCP Nurse Practitioner; Visit Provider Physician Assistant Medical | DX: S40.012D Contusion of left shoulder, subsequent encounter (principal); W01.0XXD Fall on same level from slipping, tripping and stumbling without subsequent striking against object, subsequent encounter | CPT/HCPCS: 99213 ==

== ENCOUNTER → 2021-12-27 14:51 | Outpatient (BNVA) | payer OTHER, SELFPAY | PROVIDERS: PCP Nurse Practitioner; Visit Provider Physician Assistant Medical | DX: S40.012D Contusion of left shoulder, subsequent encounter (principal); W01.0XXD Fall on same level from slipping, tripping and stumbling without subsequent striking against object, subsequent encounter | CPT/HCPCS: 99213 ==

== ENCOUNTER 2021-12-27 16:00 | Outpatient (RCR) | payer OTHER, SELFPAY ==
--- NOTE | 2021-12-06 16:59 | MHC.PT.EP ---
[facility] [place] Office [place] Office [place] Office [address] Munira Lozoya [address] [phone] F: [phone] F: [phone] F: [phone] F: [phone] Physical Therapy Plan of Care Date of Evaluation: Date of Surgery: N/A Diagnosis: L shoulder contusion/derangement (RC) Assessment: pt is a 31 y/o presenting to physical therapy w/ referring diagnosis of L shoulder contusion/derangement. High suspicion of rotator cuff tear given REGI and difficulty raising arm w/o compensation. Urged pt that she should have orthopedic referral and MRI to rule out soft tissue injury. Impairments include pain, decreased range of motion, decreased strength, impaired functional mobility, impaired postural awareness. pt is a fair candidate for skilled PT due to age, potential remediation of impairments, typical disease/condition progression and prognosis, comorbidities, and motivation. pt would benefit from tailored strengthening and stretching exercise program, functional training, gait training, postural re-training, neuromuscular re-education, modalities as needed for pain, equipment safety demonstration. Frequency and Duration: The patient will be seen 2x/wk for 4 wks Short Term Goals: pt will be I w/ HEP to promote self-management of condition. pt will improve L shoulder flexion by 10 degrees to promote ease in reaching for objects on shelves. Preparation Center Coordinator Goals: pt will report a statistically significant improvement in self-reported outcome measure, SPADI, to promote return to PLOF. pt will improve L shoulder flexion and abduction strength by at least 1 MMT grade to promote ease in upper body ADLs. Treatment Plan: Modalities to reduce pain, spasms and effusion. Manual therapy to restore motion and function. Therapeutic exercise to improve strength and flexibility. Neuromuscular re-education for posture and balance. Therapeutic activities to return to functional activities of daily living. Electronically signed by: Vicki Schultz PT, DPT Please sign and return to therapist. Thank you for your referral.
--- NOTE | 2022-01-09 13:11 | MHC.PT.EP ---
[facility] [place] Office [place] Office [place] Office [address] Munira Lozoya [address] [phone] F: [phone] F: [phone] F: [phone] F: [phone] Physical Therapy Plan of Care Date of Evaluation: Date of Surgery: N/A Diagnosis: L shoulder contusion/derangement (RC) Assessment: pt is a 31 y/o presenting to physical therapy w/ referring diagnosis of L shoulder contusion/derangement. High suspicion of rotator cuff tear given REGI and difficulty raising arm w/o compensation. Urged pt that she should have orthopedic referral and MRI to rule out soft tissue injury. Impairments include pain, decreased range of motion, decreased strength, impaired functional mobility, impaired postural awareness. pt is a fair candidate for skilled PT due to age, potential remediation of impairments, typical disease/condition progression and prognosis, comorbidities, and motivation. pt would benefit from tailored strengthening and stretching exercise program, functional training, gait training, postural re-training, neuromuscular re-education, modalities as needed for pain, equipment safety demonstration. Frequency and Duration: The patient will be seen 2x/wk for 4 wks Short Term Goals: pt will be I w/ HEP to promote self-management of condition. pt will improve L shoulder flexion by 10 degrees to promote ease in reaching for objects on shelves. It Quality Analyst Goals: pt will report a statistically significant improvement in self-reported outcome measure, SPADI, to promote return to PLOF. pt will improve L shoulder flexion and abduction strength by at least 1 MMT grade to promote ease in upper body ADLs. Treatment Plan: Modalities to reduce pain, spasms and effusion. Manual therapy to restore motion and function. Therapeutic exercise to improve strength and flexibility. Neuromuscular re-education for posture and balance. Therapeutic activities to return to functional activities of daily living. Electronically signed by: Vicki Schultz PT, DPT Please sign and return to therapist. Thank you for your referral.
== END 2022-01-09 13:11 | disposition home or self-care (01) ==
LOC: HO.PT 16:00
PROVIDERS: Visit Provider Physician Assistant Medical
DX: S40.012D Contusion of left shoulder, subsequent encounter (principal); M24.9 Joint derangement, unspecified
CPT/HCPCS: 97110; 97161; 97530

== ENCOUNTER → 2022-01-10 08:15 | Outpatient (BNVA) | payer OTHER, SELFPAY | PROVIDERS: PCP Nurse Practitioner; Visit Provider Physician Assistant Medical | DX: S40.012D Contusion of left shoulder, subsequent encounter (principal); W01.0XXA Fall on same level from slipping, tripping and stumbling without subsequent striking against object, initial encounter | CPT/HCPCS: 99213 ==

== ENCOUNTER 2022-08-13 16:42 | Emergency (ER) | payer SELFPAY ==
--- NOTE | ~2022-08-13 | XR_ITS ---
EXAMINATION: XR CHEST CLINICAL INFORMATION: Cough and SOB. COMPARISON: None available. TECHNIQUE: Frontal view of the chest was obtained. FINDINGS: No significant abnormality is noted involving the heart, lungs, mediastinum, bony thorax or soft tissues. XR/XR chest 1V IMPRESSION: Unremarkable chest examination.
[2022-08-13 16:44] VITALS: BP 129/83; PULSE 88; RESP 18; TEMP 36.8; O2SAT 97; BMI 34.2
--- NOTE | 2022-08-13 16:45 | ED.GENADULT ---
HPI - General Adult General Chief complaint: General Medical <RIC Gibson Last Filed: 08/13/22 16:46> Stated complaint: chest pain, coughing, sinus infection? <RIC Gibson Last Filed: 08/13/22 16:46> Time Seen by Provider: 08/13/22 18:07 <RIC Gibosn Last Filed: 08/13/22 16:46> Source: patient <RIC Randhawa Last Filed: 08/13/22 18:34> Mode of arrival: ambulatory <RIC Randhawa Last Filed: 08/13/22 18:34> Limitations: no limitations <RIC Randhawa Last Filed: 08/13/22 18:34> History of Present Illness HPI narrative: 32 yo female with history of asthma presents to the ER for evaluation of coughing and asthma symptoms for the last 3 days. She has had pain with inspiration and chest tightness. She does not have an inhaler at home. She states her seasonal allergies have been acting up. She is on Zyrtec. She reports the coughing is keeping her up at night. It is dry, no phlegm. No fever or chills. She has had a runny nose, nasal congestion and rib pain with coughing and deep breaths. It hurts when she touches her ribs. <RIC Randhawa Last Filed: 08/13/22 18:34> MD complaint: cough, chest tightness <RIC Randhawa Last Filed: 08/13/22 18:34> Onset (ago): day(s) (3) <RIC Randhawa Last Filed: 08/13/22 18:34> Location: chest <RIC Randhawa Last Filed: 08/13/22 18:34> Radiation: non-radiation <RIC Randhawa Last Filed: 08/13/22 18:34> Severity: moderate <RIC Randhawa Last Filed: 08/13/22 18:34> Severity scale (1-10): 5 <RIC Randhawa Last Filed: 08/13/22 18:34> Quality: sharp <RIC Randhawa - Last Filed: 08/13/22 18:34> Pain Consistency: intermittent <RIC Randhawa Last Filed: 08/13/22 18:34> Relieving factors: rest <RIC Randhawa Last Filed: 08/13/22 18:34> Exacerbating factors: other (deep breaths and coughing) <RIC Randhawa - Last Filed: 08/13/22 18:34> Associated symptoms: chest pain and cough <RIC Randhawa Last Filed: 08/13/22 18:34> Treatments prior to arrival: none <RIC Randhawa - Last Filed: 08/13/22 18:34> Related Data Home medications: Previous Rx's Medication Instructions Recorded diphenhydramine HCl 25 mg tablet 50 mg PO Q6H PRN itching #10 tabs 04/10/20 (Benadryl Allergy) prednisone 50 mg tablet 50 mg PO DAILY #5 tabs 04/10/20 cefuroxime axetil 250 mg tablet 250 mg PO BID #10 tabs 11/29/20 ondansetron HCl 4 mg tablet 4 mg PO Q8H PRN nausea and 11/29/20 (Zofran) vomiting #7 tabs amoxicillin 400 mg/5 mL oral 400 mg (5 mL) PO Q12H #75 mL 02/01/21 suspension oseltamivir 75 mg capsule (Tamiflu) 75 mg PO Q12H 5 days #10 caps 09/06/21 acetaminophen 500 mg tablet 1,000 mg PO QID PRN pain #30 tabs 11/18/21 ibuprofen 600 mg tablet 600 mg PO Q6H PRN pain #20 tabs 11/18/21 albuterol sulfate 2.5 mg/0.5 mL 2.5 mg (0.5 mL) inhalation Q4-6H 08/13/22 solution for nebulization PRN shortness of breath or wheezing #30 ea codeine 10 mg-guaifenesin 200 mg/5 10 ml PO Q4-6H PRN cough #60 mL 08/13/22 mL oral liquid (Coditussin AC) triamcinolone acetonide 55 mcg 2 spray intranasal DAILY #16.9 mL 08/13/22 nasal spray aerosol (Nasacort Allergy) <RIC Gibson - Last Filed: 08/13/22 16:46> Allergies/adverse reactions: Allergies Allergy/AdvReac Type Severity Reaction Status Date / Time MOSQUITO BITE Allergy Intermediate BODY PART Uncoded 09/06/21 19:31 SWELLING hazelnuts and mosquitos Allergy Unknown itchy/ Uncoded 09/06/21 19:31 swelling mosquitoes Allergy Unknown severe Uncoded 09/06/21 19:31 local reaction <RIC Gibson - Last Filed: 08/13/22 16:46> Review of Systems Review of Systems: Yes all other systems are reviewed and are negative <RIC Randhawa - Last Filed: 08/13/22 18:34> [facility] Past Medical History Medical History: Medical History No known health problems <RIC Gibson - Last Filed: 08/13/22 16:46> Social History Social History: Social History Alcohol intake: unknown Patient Tobacco Use Status: Tobacco use Unknown Advance Directives: No Advance Directives Information Provided: No <RIC Gibson - Last Filed: 08/13/22 16:46> Physical Exam ED Vital Signs: Vital Signs - 24 hr 08/13/22 16:44 08/13/22 16:56 Temperature 98.3 F Pulse Rate 88 87 Respiratory Rate 18 20 Blood Pressure 129/83 Pulse Oximetry 97 Oxygen Delivery Method Room Air BMI result Body Mass Index 34.2 <RIC Gibson - Last Filed: 08/13/22 16:46> Vital Signs - 24 hr 08/13/22 16:44 08/13/22 16:56 Temperature 98.3 F Pulse Rate 88 87 Respiratory Rate 18 20 Blood Pressure 129/83 Pulse Oximetry 97 Oxygen Delivery Method Room Air BMI result Body Mass Index 34.2 <RIC Randhawa - Last Filed: 08/13/22 18:34> Appearance: Alert. Oriented X3. No acute distress. Head: normocephalic, atraumatic. Eyes: Pupils equal, round and reactive to light. ENT: Pharynx normal. No tonsillar swelling or exudate. Neck: Normal inspection. Neck supple. CVS: Normal heart rate and rhythm. Pulses normal. Respiratory: No respiratory distress. Breath sounds normal. Skin: Skin warm and dry. Normal skin color. Normal skin turgor. No rashes. Extremities: No lower extremity edema. No joint swelling. No calf tenderness or redness. Neuro/psych: Oriented X 3. No motor deficit. No sensory deficit. CN II-XII intact. Normal speech and cognition. <RIC Randhawa - Last Filed: 08/13/22 18:34> Course Course Course Narrative: This is an RME: Additional HPI, ROS, PE not included below will be deferred to primary provider. 32-year-old female presents with fatigue, malaise, myalgias, wheezing, shortness of breath, chest tightness, patient took nebulizing treatment at home with little to no relief. This has been going on for 3 days. Patient does not have an inhaler. Physical exam benign. Patient is saturating well on room air. Perc negative. Plan viral testing x-ray. Will order albuterol. <RIC Gibson - Last Filed: 08/13/22 16:46> Medications Administered Discontinued Medications Generic Name Dose Route Start Last Admin Trade Name Freq PRN Reason Stop Dose Admin Albuterol Sulfate 4 puff 08/13/22 16:44 08/13/22 16:55 Albuterol Sulfate 90 Mcg 8 Gm Inhaler INHALE 08/13/22 16:45 4 puff ONCE ONE Administration <RIC Gibson - Last Filed: 08/13/22 16:46> Medications Administered Discontinued Medications Generic Name Dose Route Start Last Admin Trade Name Freq PRN Reason Stop Dose Admin Albuterol Sulfate 4 puff 08/13/22 16:44 08/13/22 16:55 Albuterol Sulfate 90 Mcg 8 Gm Inhaler INHALE 08/13/22 16:45 4 puff ONCE ONE Administration <RIC Randhawa - Last Filed: 08/13/22 18:34> Medical Decision Making Medical Decision Making MDM Narrative: 32 yo female with history of asthma presents to the ER for evaluation of chest tightness, coughing, nasal congestion x3 days. VSS and no wheezing on examination. CXR is clear. COVID and Flu negative. She is stable for d/c home with antitussives, albuterol PRN. Patient agrees with plan. <RIC Randhawa - Last Filed: 08/13/22 18:34> Differential Diagnosis Differential Diagnoses: The differential diagnosis associated with the presentation includes <RIC Randhawa - Last Filed: 08/13/22 18:34> seasonal allergies, viral URI w/ cough, asthma exacerbation, COVID, Flu, Pneumonia <RIC Randhawa - Last Filed: 08/13/22 18:34> Lab Data MDM Lab Attestation statement: I reviewed the patient's lab results. <RIC Randahwa - Last Filed: 08/13/22 18:34> Labs: Lab Results 08/13/22 08/13/22 Range/Units 17:21 17:21 COVID-19 (LEBRON) Negative (Negative) COVID-19 Clin Com See Note Influenza Type A (BRIAN) Negative (Negative) Influenza Type B (BRIAN) Negative (Negative) Influenza A & B Note See Note <RIC Gibson - Last Filed: 08/13/22 16:46> Lab Results 08/13/22 08/13/22 Range/Units 17:21 17:21 COVID-19 (LEBRON) Negative (Negative) COVID-19 Clin Com See Note Influenza Type A (BRIAN) Negative (Negative) Influenza Type B (BRIAN) Negative (Negative) Influenza A & B Note See Note <RIC Randhawa - Last Filed: 08/13/22 18:34> Independent Interpretation I performed an independent interpretation of an: Plain X-Ray <RIC Randhawa - Last Filed: 08/13/22 18:34> Interpretation: clear lungs, no infiltrate or effusion <RIC Randhawa - Last Filed: 08/13/22 18:34> Radiology Impression Discussion of test interpretation with radiology: I have reviewed the radiologist's reading. <RIC Randhawa - Last Filed: 08/13/22 18:34> Radiologist Impression: EXAMINATION: XR CHEST CLINICAL INFORMATION: Cough and SOB. COMPARISON: None available. TECHNIQUE: Frontal view of the chest was obtained. FINDINGS: No significant abnormality is noted involving the heart, lungs, mediastinum, bony thorax or soft tissues. XR/XR chest 1V IMPRESSION: Unremarkable chest examination. <RIC Randhawa - Last Filed: 08/13/22 18:34> External Record Review External record reviewed: Prior outpatient labs and Prior outpatient radiology <RIC Randhawa - Last Filed: 08/13/22 18:34> Prescription Management I considered prescription management with: Antibiotic and Other (bronchodilator) <RIC Randhawa - Last Filed: 08/13/22 18:34> Chronic Conditions Patient?s care impacted by: Other <RIC Randhawa - Last Filed: 08/13/22 18:34> asthma <RIC Randhawa - Last Filed: 08/13/22 18:34> Critical Care Time Critical Care Time Critical Care Time: No <RIC Randhawa - Last Filed: 08/13/22 18:34> Discharge Plan Discharge Clinical Impression: Viral URI with cough <RIC Gbison - Last Filed: 08/13/22 16:46> Patient Disposition: Home, Self-Care <RIC Gibson - Last Filed: 08/13/22 16:46> Instructions: Asthma (DC), Viral Syndrome (ED) <RIC Gibson - Last Filed: 08/13/22 16:46> Additional Instructions: Your chest x-ray was normal. You are negative for COVID and Flu. Take the prescribed medications as directed. Use your inhaler or nebulizer as needed for wheezing or shortness of breath Continue your allergy medication Follow up with your doctor as needed. If you develop new or worsening symptoms call 911 or come back to the ER for further evaluation. <RIC Gibson Last Filed: 08/13/22 16:46> Prescriptions: New albuterol sulfate 2.5 mg/0.5 mL solution for nebulization 2.5 mg inhalation Q4-6H PRN (Reason: shortness of breath or wheezing) Qty: 30 0RF Coditussin AC 10-200 mg/5 mL liquid 10 ml PO Q4-6H PRN (Reason: cough) Qty: 60 0RF triamcinolone acetonide [Nasacort Allergy] 55 mcg aerosol,spray 2 spray intranasal DAILY Qty: 16.9 0RF Rx Instructions: administer into each nostril No Action prednisone 50 mg tablet 50 mg PO DAILY Qty: 5 0RF diphenhydramine HCl [Benadryl Allergy] 25 mg tablet 50 mg PO Q6H PRN (Reason: itching) Qty: 10 0RF amoxicillin 400 mg/5 mL suspension for reconstitution 400 mg PO Q12H Qty: 75 0RF cefuroxime axetil 250 mg tablet 250 mg PO BID Qty: 10 0RF ondansetron HCl [Zofran] 4 mg tablet 4 mg PO Q8H PRN (Reason: nausea and vomiting) Qty: 7 0RF acetaminophen 500 mg tablet 1,000 mg PO QID PRN (Reason: pain) Qty: 30 0RF ibuprofen 600 mg tablet 600 mg PO Q6H PRN (Reason: pain) Qty: 20 0RF oseltamivir [Tamiflu] 75 mg capsule 75 mg PO Q12H 5 Days Qty: 10 0RF <RIC Gibson - Last Filed: 08/13/22 16:46> Referrals: Rajni Banks [Primary Care Provider] - <RIC Gibson - Last Filed: 08/13/22 16:46>
[2022-08-13] MEDS: Albuterol Sulfate 90 MCG 8 GM INHALER 4 PUFF INHALE (16:55)
[2022-08-13 16:56] VITALS: PULSE 87; RESP 20; O2SAT 97
[2022-08-13 17:49] LABS: IDNOW Serial# BCCEAD1C; Influenza A Negative (Negative); Influenza B2 Negative (Negative)
[2022-08-13 17:50] LABS: COVID-19 Test Negative (Negative); IDNOW Serial# 08D9AD1C
== END 2022-08-13 18:51 | disposition home or self-care (01) ==
PROVIDERS: Physician Assistant; Emergency Provider Emergency Medicine Emergency Medical Services; PCP Nurse Practitioner
DX: J06.9 Acute upper respiratory infection, unspecified (principal); R07.89 Other chest pain; R05.9 Cough, unspecified; Z20.822 Contact with and (suspected) exposure to COVID-19; Z20.828 Contact with and (suspected) exposure to other viral communicable diseases; Z79.899 Other long term (current) drug therapy
CPT/HCPCS: 71045; 87502; 87635; 94640; 99283

== ENCOUNTER 2023-09-11 17:17 | Emergency (ER) | payer SELFPAY ==
[2023-09-11 18:49] VITALS: BP 120/70; PULSE 55; RESP 14; TEMP 36.1; O2SAT 100; BMI 35.2
--- NOTE | 2023-09-11 18:50 | ED_ITS ---
HPI - Abdominal Pain General Chief Complaint: Abdominal Pain Stated Complaint: On and off upper stomach pain/to back Related Data Previous Rx's ?Medication ?Instructions ?Recorded diphenhydramine HCl 25 mg tablet 50 mg (2 x 25 mg) PO Q6H PRN 04/10/20 (Benadryl Allergy) itching #10 tabs ondansetron HCl 4 mg tablet 4 mg PO Q8H PRN nausea and 11/29/20 (Zofran) vomiting #7 tabs oseltamivir 75 mg capsule (Tamiflu) 75 mg PO Q12H 5 days #10 caps 09/06/21 acetaminophen 500 mg tablet 1,000 mg (2 x 500 mg) PO QID PRN 11/18/21 pain #30 tabs ibuprofen 600 mg tablet 600 mg PO Q6H PRN pain #20 tabs 11/18/21 albuterol sulfate 2.5 mg/0.5 mL 2.5 mg (0.5 mL) inhalation Q4-6H 08/13/22 solution for nebulization PRN shortness of breath or wheezing #30 ea triamcinolone acetonide 55 mcg 2 spray intranasal DAILY #16.9 mL 08/13/22 nasal spray aerosol (Nasacort Allergy) sulfamethoxazole 800 1 tab PO BID #10 tabs 09/12/23 mg-trimethoprim 160 mg tablet (Bactrim DS) Allergies Allergy/AdvReac Type Severity Reaction Status Date / Time MOSQUITO BITE Allergy Intermediate BODY PART Uncoded 09/12/23 13:49 SWELLING hazelnuts and mosquitos Allergy Unknown itchy/ Uncoded 09/12/23 13:49 swelling mosquitoes Allergy Unknown severe Uncoded 09/12/23 13:49 local reaction PMFSH Past Medical History Medical History (Updated 09/13/23 @ 14:39 by Paola Botello NP) No known health problems Surgical History (Updated 09/13/23 @ 14:32 by PANFILO [place]) Hx of appendectomy Social History Social History (Updated 09/13/23 @ 14:32 by PANFILO [place]) Alcohol intake: current Alcohol intake frequency: holidays/special occasions only Patient Tobacco Use Status: Tobacco use Unknown Physical Exam ED Vital Signs: BMI result Body Mass Index 35.2 Course Course Course Narrative: This is a rapid medical exam completed by Skyler [employer] TECHNICIAN: Additional HPI, ROS, PE not included below will be deferred to primary provider. 1-2 month history of epigastric, pelvic and midback pain. Reports that she originally thought it was acid reflux but the pain persists despite her acid reflux medications. Reports that she has vomited several times due to the pain. Medical Decision Making Lab Data 09/11/23 19:11 09/11/23 19:11 Labs: Lab Results 09/11/23 Range/Units 19:11 WBC 8.7 (4.8-10.8) X10*3/uL RBC 4.61 (4.20-5.50) X10*6/uL Hgb 13.7 (12.0-16.0) g/dl Hct 40.3 (37.0-47.0) % MCV 87.4 (80.0-98.0) fL MCH 29.7 (27.0-33.0) pg MCHC 34.0 (31.0-35.0) g/dl RDW 12.4 (11.0-16.0) % Plt Count 317 (160-400) X10*3/uL MPV 9.5 (9.4-12.3) fL Immature Gran % (Auto) 0.2 (0.0-0.4) % Neut % (Auto) 62.9 (45-73) % Lymph % (Auto) 29.5 (20-40) % [place] % (Auto) 5.6 (2-11) % Eos % (Auto) 0.8 (0-4) % Baso % (Auto) 1.0 (0-2) % Lymph # (Auto) 2.6 (1.2-4.9) X10*3/uL [place] # (Auto) 0.5 (0.1-1.2) X10*3/uL Eos # (Auto) 0.1 (0.0-0.4) X10*3/uL Baso # (Auto) 0.1 (0.0-0.2) X10*3/uL Abs Immat Gran (auto) 0.02 (0.00-0.03) X10*3/uL Absolute Neuts (auto) 5.5 (2.0-8.3) x10*3/uL Absolute Nucleated RBC 0.000 (0.0-0.012) X10*3/uL Nucleated RBC % (auto) 0.0 (0.0-0.2) /100WBC Sodium 139 (135-145) mmol/L Potassium 3.9 (3.3-5.1) mmol/L Chloride 106 (96-108) mmol/L Carbon Dioxide 26 (22-29) mmol/L Anion Gap 11 L (12-20) BUN 9 (9-16) mg/dL Creatinine 0.77 (0.5-1.4) mg/dL Estim Creat Clear Calc 138.6 Estimated GFR > 60 Random Glucose 99 (60-115) mg/dL Calcium 9.1 (8.4-10.2) mg/dL Total Bilirubin 0.2 (0.0-1.0) mg/dL AST 11 (5-31) U/L ALT 13 (0-31) U/L Alkaline Phosphatase 64 (39-117) U/L Total Protein 7.2 (6.5-8.0) g/dL Albumin 3.9 (3.5-5.0) g/dL Lipase 13 (8-78) U/L Urine Color Yellow Urine Appearance Cloudy Urine pH 7.5 (5.0-9.0) Ur Specific [place] >= 1.030 H (1.005-1.025) Urine Protein Trace (Neg-Trace) mg/dL Urine Glucose (UA) Negative (Negative) mg/dL Urine Ketones Trace (Negative) mg/dL Urine Blood Negative (Negative) Urine Nitrite Positive H (Negative) Ur Leukocyte Esterase Trace H (Negative) Urine RBC 0-2 (0-2) /HPF Urine WBC 0-5 (0-5) /HPF Ur Squamous Epith Cells 6-10 (0-2) /HPF Urine Bacteria 4+ (None Seen) Hyaline Casts 0-2 (0-2) /LPF Discharge Plan Discharge Clinical Impression: Left before treatment completed Patient Disposition: Left W/O Completing Treatment Prescriptions: No Action diphenhydramine HCl [Benadryl Allergy] 25 mg tablet 50 mg PO Q6H PRN (Reason: itching) Qty: 10 0RF ondansetron HCl [Zofran] 4 mg tablet 4 mg PO Q8H PRN (Reason: nausea and vomiting) Qty: 7 0RF acetaminophen 500 mg tablet 1,000 mg PO QID PRN (Reason: pain) Qty: 30 0RF ibuprofen 600 mg tablet 600 mg PO Q6H PRN (Reason: pain) Qty: 20 0RF oseltamivir [Tamiflu] 75 mg capsule 75 mg PO Q12H 5 Days Qty: 10 0RF sulfamethoxazole-trimethoprim [Bactrim DS] 800-160 mg tablet 1 tab PO BID Qty: 10 0RF albuterol sulfate 2.5 mg/0.5 mL solution for nebulization 2.5 mg inhalation Q4-6H PRN (Reason: shortness of breath or wheezing) Qty: 30 0RF triamcinolone acetonide [Nasacort Allergy] 55 mcg aerosol,spray 2 spray intranasal DAILY Qty: 16.9 0RF Rx Instructions: administer into each nostril Interventions: JESSICA Worksheet Last Done: 09/12/23 01:14 Discharge Date/Time: 09/12/23 01:15
[2023-09-11 19:20] LABS: MANUAL DIFF FLAG NO
[2023-09-11 19:21] LABS: Basophils Absolute Auto 0.1 X10*3/uL (0.0-0.2); Eosinophils Absolute Auto 0.1 X10*3/uL (0.0-0.4); Eosinophils Percent Auto 0.8 % (0-4); Hematocrit 40.3 % (37.0-47.0); Hemoglobin 13.7 g/dl (12.0-16.0); Imm Gran Abs Auto 0.02 X10*3/uL (0.00-0.03); Imm Gran Pct Auto 0.2 % (0.0-0.4); Lymphocytes Absolute Auto 2.6 X10*3/uL (1.2-4.9); Lymphocytes Percent Auto 29.5 % (20-40); Mean Corpuscular Hemoglobin 29.7 pg (27.0-33.0); Mean Corpuscular Volume 87.4 fL (80.0-98.0); Mean Platelet Volume 9.5 fL (9.4-12.3); Monocytes Absolute Auto 0.5 X10*3/uL (0.1-1.2); Monocytes Percent Auto 5.6 % (2-11); Neutrophils Absolute Auto 5.5 x10*3/uL (2.0-8.3); Neutrophils Percent Auto 62.9 % (45-73); Platelet Count 317 X10*3/uL (160-400); Red Blood Count 4.61 X10*6/uL (4.20-5.50); Red Cell Distribution Width 12.4 % (11.0-16.0); White Blood Count 8.7 X10*3/uL (4.8-10.8)
[2023-09-11 19:24] LABS: Appearance Urine Cloudy; Color Urine Yellow; Glucose Urine UA Negative (Negative); Leukocyte Esterase Urine Trace (Negative); Nitrite Urine Positive (Negative); PH 7.5 (5.0-9.0); Specific Gravity - Urine >= 1.030 (1.005-1.025); UMIC TRIGGER UACC YES; Urine Blood Negative (Negative); Urine Ketones Trace mg/dL (Negative); Urine Protein Trace mg/dL (Neg-Trace)
[2023-09-11 19:34] LABS: Alanine Aminotransferase 13 U/L (0-31); Albumin Level 3.9 g/dL (3.5-5.0); Alkaline Phosphatase 64 U/L (39-117); Anion Gap 11 (12-20); Aspartate Amino Transferase 11 U/L (5-31); Bilirubin Total 0.2 mg/dL (0.0-1.0); Blood Urea Nitrogen 9 mg/dL (9-16); Calcium 9.1 mg/dL (8.4-10.2); Carbon Dioxide 26 mmol/L (22-29); Chloride 106 mmol/L (96-108); Creatinine Clr Calc Pharmacy 138.6; Estimated Glomerular Filt Rate > 60; Glucose Random 99 mg/dL (60-115); Lipase 13 U/L (8-78); Potassium 3.9 mmol/L (3.3-5.1); Sodium 139 mmol/L (135-145); Total Protein 7.2 g/dL (6.5-8.0)
[2023-09-11 19:51] LABS: Bacteria Urine 4+ (None Seen); Hyaline Casts Urine 0-2 /LPF (0-2); RBC Urine 0-2 /HPF (0-2); UACC Culture Trigger YES; WBC Urine 0-5 /HPF (0-5)
[2023-09-11 21:44] VITALS: BP 113/56; PULSE 58; RESP 18; O2SAT 100
== END 2023-09-12 01:15 | disposition left against medical advice (07) ==
PROVIDERS: Nurse Practitioner Family; Emergency Provider Emergency Medicine
DX: R10.13 Epigastric pain (principal); R10.2 Pelvic and perineal pain; M54.9 Dorsalgia, unspecified
CPT/HCPCS: 36415; 80053; 81001; 83690; 85025; 87086; 87088; 87186; 99283; 99284

== ENCOUNTER 2023-09-12 | Outpatient (REF) | payer SELFPAY | END 2023-09-12 00:01 | disposition home or self-care (01) | LOC: HO.HHCLNP | PROVIDERS: Visit Provider Emergency Medicine | DX: R10.10 Upper abdominal pain, unspecified (principal) | CPT/HCPCS: 87086; 87088; 87186 ==

== ENCOUNTER 2023-09-12 12:48 | Emergency (ER) | payer SELFPAY ==
--- NOTE | ~2023-09-12 | US_ITS ---
EXAMINATION: US ABDOMEN LIMITED CLINICAL INFORMATION: Right upper quadrant pain. COMPARISON: 04/03/2013 TECHNIQUE: Real-time imaging of the right upper quadrant abdominal viscera. FINDINGS: PANCREAS: Obscured by midline bowel gas. LIVER: The liver is enlarged at 17 cm in length and slightly echogenic. No focal mass. There is no intrahepatic biliary dilatation. GALLBLADDER: Shadowing gallstones are seen within the contracted gallbladder. Patient was tender in the right upper quadrant during scanning. No evidence for adjacent pericholecystic fluid. COMMON BILE DUCT: Normal in caliber measuring 0.3 cm in diameter. RIGHT KIDNEY: Normal. No hydronephrosis. No renal calculi or focal parenchymal lesions. The kidney measures 8.9 cm in maximum dimension. FREE FLUID: None. US/US abdomen limited IMPRESSION: Cholecystolithiasis. No biliary dilatation.
[2023-09-12 13:48] VITALS: BP 125/65; PULSE 64; RESP 16; TEMP 35.7; O2SAT 100; BMI 34.9
--- NOTE | 2023-09-12 13:49 | ED_ITS ---
HPI - General Adult General Chief complaint: Abdominal Pain Stated complaint: Lower abd pain/Urine frequency Time Seen by Provider: 09/12/23 18:43 Source: patient, RN notes reviewed and old records reviewed Mode of arrival: ambulatory Limitations: no limitations History of Present Illness HPI narrative: 33-year-old female presents for evaluation abdominal pain. Patient reports lower abdominal pain and burning with urination with urinary frequency for 1 month She reports upper abdominal pain for the last few days The pain is worse after eating Denies any vomiting but endorses nausea Denies any fevers, chills. She reports remote history of appendectomy when she was 6 years old She rates her pain as 6/10. Related Data Previous Rx's ?Medication ?Instructions ?Recorded diphenhydramine HCl 25 mg tablet 50 mg (2 x 25 mg) PO Q6H PRN 04/10/20 (Benadryl Allergy) itching #10 tabs prednisone 50 mg tablet 50 mg PO DAILY #5 tabs 04/10/20 cefuroxime axetil 250 mg tablet 250 mg PO BID #10 tabs 11/29/20 ondansetron HCl 4 mg tablet 4 mg PO Q8H PRN nausea and 11/29/20 (Zofran) vomiting #7 tabs amoxicillin 400 mg/5 mL oral 400 mg (5 mL) PO Q12H #75 mL 02/01/21 suspension oseltamivir 75 mg capsule (Tamiflu) 75 mg PO Q12H 5 days #10 caps 09/06/21 acetaminophen 500 mg tablet 1,000 mg (2 x 500 mg) PO QID PRN 11/18/21 pain #30 tabs ibuprofen 600 mg tablet 600 mg PO Q6H PRN pain #20 tabs 11/18/21 albuterol sulfate 2.5 mg/0.5 mL 2.5 mg (0.5 mL) inhalation Q4-6H 08/13/22 solution for nebulization PRN shortness of breath or wheezing #30 ea codeine 10 mg-guaifenesin 200 mg/5 10 ml PO Q4-6H PRN cough #60 mL 08/13/22 mL oral liquid (Coditussin AC) triamcinolone acetonide 55 mcg 2 spray intranasal DAILY #16.9 mL 08/13/22 nasal spray aerosol (Nasacort Allergy) sulfamethoxazole 800 1 tab PO BID #10 tabs 09/12/23 mg-trimethoprim 160 mg tablet (Bactrim DS) Allergies Allergy/AdvReac Type Severity Reaction Status Date / Time MOSQUITO BITE Allergy Intermediate BODY PART Uncoded 09/12/23 13:49 SWELLING hazelnuts and mosquitos Allergy Unknown itchy/ Uncoded 09/12/23 13:49 swelling mosquitoes Allergy Unknown severe Uncoded 09/12/23 13:49 local reaction Review of Systems Constitutional: Constitutional: Denies body ache(s), Denies chills and Denies fever(s) Eyes: Eyes: Denies blurry vision ENT: Denies vertigo and Denies sore throat Cardiovascular: Cardiovascular: Denies chest pain and Denies dyspnea Respiratory: Respiratory: Denies cough and Denies dyspnea Gastrointestinal: Gastrointestinal: Reports abdominal pain, Reports nausea and Denies vomiting Genitourinary: Genitourinary: Denies difficulty voiding, Reports dysuria, Reports pelvic pain and Denies flank pain Musculoskeletal: Musculoskeletal: Denies back pain Neurologic: Denies vertigo PMFSH Past Medical History Medical History No known health problems Social History Social History Alcohol intake: unknown Patient Tobacco Use Status: Tobacco use Unknown Advance Directives: No Advance Directives Information Provided: No Physical Exam ED Vital Signs: Vital Signs - 24 hr 09/12/23 13:48 09/12/23 18:42 Temperature 96.2 F L 96.3 F L Pulse Rate 64 60 Respiratory Rate 16 18 Blood Pressure 125/65 115/54 L Pulse Oximetry 100 98 Oxygen Delivery Method Room Air Room Air BMI result Body Mass Index 34.9 Const General: healthy appearing, comfortable, no acute distress, alert and awake Nutritional Appearance: well nourished Orientation/consciousness: patient oriented x3 HENMT Head: Yes normocephalic and Yes atraumatic Eyes Eyelids: Yes eyelids normal Conjunctivae: conjunctivae normal Sclerae: sclerae normal Corneas: corneas normal Pupils: Equal, round and reactive pupils present EOM: EOMs intact bilaterally Neck Neck: Yes full ROM Resp Effort & Inspection: normal respiratory effort, able to speak in complete sentences and not labored GI Inspection: No distended Palpation (GI): Soft to palpation, not firm, Tenderness to palpation present (GI) in the RUQ, no guarding and not rigid Skin General skin exam: elasticity normal Neuro General: patient oriented x3 Cranial nerves: Yes Equal, round and reactive pupils present and Yes Bilaterally intact EOM present Cognition (Neuro): normal cognition Extrem Other: Moving all extremities well without any obvious deformities Course Course Course Narrative: WILD- 33-year-old female presents for evaluation epigastric abdominal pain and pelvic pain with urinary frequency. She reports her symptoms have been on and off for 1 month. She came here last night and had labs that were unremarkable and left without being seen. Her UA did appear to show a UTI. Her doctor sent her here due to right upper quadrant tenderness on exam this morning. I did not order repeat labs as they were done last night, but I ordered an ultrasound of the right upper quadrant. The patient reports that her primary doctor did a test this morning which was negative Medical Decision Making Medical Decision Making MDM Narrative: Female presents for abdominal both upper abdominal pain with UTI symptoms per above nausea. She had labs and a UA done yesterday. Her labs had no leukocytosis, no left shift. Normal LFTs. She did have a UTI on exam. Ultrasound done today shows gallstones with no evidence of cholecystitis. Will discharge her with surgery referral and Bactrim for UTI as her insurance would not cover 2nd generation cephalosporin Differential Diagnosis Differential Diagnoses: The differential diagnosis associated with the presentation includes UTI Cholelithiasis Cholecystitis Abdominal pain Viral syndrome Lab Data [facility] Lab Attestation statement: I reviewed the patient's lab results. Labs done at 7:11 p.m. last night have no leukocytosis or anemia. No left shift. Electrolytes within normal limits, LFTs within normal limits. Normal renal function Discharge Plan Discharge Clinical Impression: Cholelithiasis, Urinary tract infection Patient Disposition: Home, Self-Care Instructions: Gallstones (ED), Urinary Tract Infection in Women (ED) Additional Instructions: Your urine sample was positive for UTI. Your ultrasound showed multiple gallstones but no evidence of infection. Avoid greasy, fried foods as this will make her pain worse Follow-up with general surgery at the number provided Return for new or worsening symptoms Prescriptions: New sulfamethoxazole-trimethoprim [Bactrim DS] 800-160 mg tablet 1 tab PO BID Qty: 10 0RF No Action prednisone 50 mg tablet 50 mg PO DAILY Qty: 5 0RF diphenhydramine HCl [Benadryl Allergy] 25 mg tablet 50 mg PO Q6H PRN (Reason: itching) Qty: 10 0RF amoxicillin 400 mg/5 mL suspension for reconstitution 400 mg PO Q12H Qty: 75 0RF cefuroxime axetil 250 mg tablet 250 mg PO BID Qty: 10 0RF ondansetron HCl [Zofran] 4 mg tablet 4 mg PO Q8H PRN (Reason: nausea and vomiting) Qty: 7 0RF acetaminophen 500 mg tablet 1,000 mg PO QID PRN (Reason: pain) Qty: 30 0RF ibuprofen 600 mg tablet 600 mg PO Q6H PRN (Reason: pain) Qty: 20 0RF oseltamivir [Tamiflu] 75 mg capsule 75 mg PO Q12H 5 Days Qty: 10 0RF albuterol sulfate 2.5 mg/0.5 mL solution for nebulization 2.5 mg inhalation Q4-6H PRN (Reason: shortness of breath or wheezing) Qty: 30 0RF Coditussin AC 10-200 mg/5 mL liquid 10 ml PO Q4-6H PRN (Reason: cough) Qty: 60 0RF triamcinolone acetonide [Nasacort Allergy] 55 mcg aerosol,spray 2 spray intranasal DAILY Qty: 16.9 0RF Rx Instructions: administer into each nostril Referrals: Kenny Inman MD [Physician] - (Cholelithiasis) Interventions: ED Discharge Assessment Last Done: 09/12/23 18:51 Print Language: Thai
[2023-09-12 18:42] VITALS: BP 115/54; PULSE 60; RESP 18; TEMP 35.7; O2SAT 98
[2023-09-12 18:51] VITALS: BP 115/54; PULSE 60; RESP 18; TEMP 35.7; O2SAT 98
== END 2023-09-12 18:52 | disposition home or self-care (01) ==
PROVIDERS: Emergency Provider Emergency Medicine
DX: K80.20 Calculus of gallbladder without cholecystitis without obstruction (principal); N39.0 Urinary tract infection, site not specified; B96.20 Unspecified Escherichia coli [E. coli] as the cause of diseases classified elsewhere
CPT/HCPCS: 76705; 99282; 99284

== ENCOUNTER 2023-09-13 14:16 | Outpatient (AMB) | payer MEDICAID, SELFPAY ==
--- NOTE | 2023-09-13 14:23 | MHC.OFFVIS ---
Intake Visit Reasons: cholecystitis Intake Note: Patient is seen in office for ER follow up visit, following cholelithiasis. Pt c/o: onset one month, upper abdominal pain radiates to the sides, on and off, admits nausea and vomit, pain kept getting worse in the URQ and to the back, denies diarrhea, consitpation, went to ED and had imaging done Manufacturer'S Service Representative Required: No Accompanied by: Self / Same As Patient Allergies MOSQUITO BITE Allergy (Intermediate, Uncoded 09/12/23 13:49) BODY PART SWELLING hazelnuts and mosquitos Allergy (Unknown, Uncoded 09/12/23 13:49) itchy/ swelling mosquitoes Allergy (Unknown, Uncoded 09/12/23 13:49) severe local reaction Medication List - Last Reconciled 09/13/23 by Kenny Inman MD acetaminophen 1,000 mg (2 x 500 mg) PO QID PRN albuterol sulfate 2.5 mg (0.5 mL) inhalation Q4-6H PRN diphenhydramine HCl (Benadryl Allergy) 50 mg (2 x 25 mg) PO Q6H PRN ibuprofen 600 mg PO Q6H PRN ondansetron HCl (Zofran) 4 mg PO Q8H PRN oseltamivir (Tamiflu) 75 mg PO Q12H 5 days sulfamethoxazole-trimethoprim 800-160 mg (Bactrim DS) 1 tab PO BID triamcinolone acetonide (Nasacort Allergy) 2 sprays intranasal DAILY HPI Comments Details: 33-year-old female patient presenting for evaluation of right upper quadrant abdominal pain. She was evaluated in the emergency department on 09/12/2023 and found to have tenderness in the right upper quadrant as well as in the lower abdomen. Workup revealed a urinary tract infection as well as gallstones within the gallbladder. Patient was found to be tender over the gallbladder by ultrasound. The patient reports the pain seems to increase after eating and is associated with nausea and vomiting. She denies fever or chills. Since her visit to the emergency department she reports the pain has continued and sometimes even occurs after drinking water. She presents today to discuss cholecystectomy. [facility] Medical History No known health problems Surgical History Hx of appendectomy Social History Alcohol intake: current Alcohol intake frequency: holidays/special occasions only Patient Tobacco Use Status: Tobacco use Unknown Review of Systems Const All systems reviewed & are unremarkable except as noted in HPI and below GI Reports abdominal pain, Reports nausea and Reports vomiting Physical Exam Const General: cooperative and no acute distress Nutritional Appearance: well nourished Orientation/consciousness: patient oriented x3 Limitations: no limitations HEENT Head: Yes normocephalic and Yes atraumatic Ears: hearing grossly normal bilaterally Resp Effort & Inspection: normal respiratory effort, no audible wheezes, no cough and no respiratory distress Cardio Jugular venous distension: no JVD GI Inspection: Yes normal to inspection Palpation (GI): Soft to palpation, Tenderness to palpation present (GI) in the RUQ and Sebastian's sign positive, no guarding and not rigid Skin Other: Warm, dry, no rash Neuro General: patient oriented x3 Extrem General: Yes no clubbing, cyanosis or edema Results Reviewed Results Reviewed: EXAMINATION: US ABDOMEN LIMITED CLINICAL INFORMATION: Right upper quadrant pain. COMPARISON: 04/03/2013 TECHNIQUE: Real-time imaging of the right upper quadrant abdominal viscera. FINDINGS: PANCREAS: Obscured by midline bowel gas. LIVER: The liver is enlarged at 17 cm in length and slightly echogenic. No focal mass. There is no intrahepatic biliary dilatation. GALLBLADDER: Shadowing gallstones are seen within the contracted gallbladder. Patient was tender in the right upper quadrant during scanning. No evidence for adjacent pericholecystic fluid. COMMON BILE DUCT: Normal in caliber measuring 0.3 cm in diameter. RIGHT KIDNEY: Normal. No hydronephrosis. No renal calculi or focal parenchymal lesions. The kidney measures 8.9 cm in maximum dimension. FREE FLUID: None. US/US abdomen limited IMPRESSION: Cholecystolithiasis. No biliary dilatation. Assessment & Plan Assessment & Plan (1) Cholecystitis, acute with cholelithiasis: Code(s): K80.00 - Calculus of gallbladder with acute cholecystitis without obstruction Category: Medical Qualifiers: Biliary obstruction: without biliary obstruction Qualified Code(s): K80.00 - Calculus of gallbladder with acute cholecystitis without obstruction Plan 33-year-old female patient presenting with complaints of abdominal pain in the right upper quadrant radiating into the back which began approximately 1-2 months ago and has persisted. The pain has increased in severity and frequency. On examination the patient is tender in the right upper quadrant with a positive Sebastian sign suggestive of acute cholecystitis. Workup with ultrasound of the abdomen revealed a gallbladder filled with gallstones with sonographic Sebastian sign. I recommended a laparoscopic or possible open cholecystectomy and after discussion of the procedure, risks, and alternatives, she consents to the surgery. Medications: Discontinued prednisone Discontinued Reason: Patient Completed Course 50 mg PO DAILY 5 tabs 0RF cefuroxime axetil Discontinued Reason: Patient Completed Course 250 mg PO BID 10 tabs 0RF amoxicillin Discontinued Reason: Patient Completed Course 400 mg (5 mL) PO Q12H 75 mL 0RF codeine-guaifenesin 10-200 mg/5 mL (Coditussin AC) Discontinued Reason: Patient Completed Course 10 mL PO Q4-6H PRN 60 mL 0RF cough Coding Level of Care Code New Pt Level 4 (18272) Diagnoses Calculus of gallbladder with acute cholecystitis without obstruction K80.00 Biliary obstruction: without biliary obstruction
== END 2023-09-13 15:04 | disposition home or self-care (01) ==
PROVIDERS: Visit Provider Surgery
DX: K80.00 Calculus of gallbladder with acute cholecystitis without obstruction (principal)
CPT/HCPCS: 99204

== ENCOUNTER → 2023-09-13 14:16 | Outpatient (BNVA) | payer SELFPAY | PROVIDERS: Visit Provider Surgery | DX: K80.00 Calculus of gallbladder with acute cholecystitis without obstruction (principal) | CPT/HCPCS: 99202 ==

== ENCOUNTER 2023-11-23 20:36 | Inpatient (IN) | payer MEDICAID, SELFPAY ==
--- NOTE | ~2023-11-23 | US_ITS ---
EXAMINATION: US ABDOMEN LIMITED CLINICAL INFORMATION: Right upper quadrant pain; question acute cholecystitis. COMPARISON: None available. TECHNIQUE: Real-time imaging of the right upper quadrant abdominal viscera. FINDINGS: GALLBLADDER: There are multiple gallstones, with a [id number] complex. There is gallbladder wall thickening to 4 mm. There is a pericholecystic fluid. COMMON BILE DUCT: Normal in caliber measuring 0.4 cm in diameter. US/US abdomen limited IMPRESSION: Findings are consistent with marked cholelithiasis and mild acute cholecystitis.
[2023-11-23 20:43] VITALS: BP 127/81; PULSE 67; RESP 16; TEMP 36.3; O2SAT 99; BMI 34.4
[2023-11-23 21:16] LABS: Alanine Aminotransferase 11 U/L (0-31); Albumin Level 3.7 g/dL (3.5-5.0); Alkaline Phosphatase 56 U/L (39-117); Anion Gap 13 (12-20); Aspartate Amino Transferase 9 U/L (5-31); Bilirubin Total 0.2 mg/dL (0.0-1.0); Blood Urea Nitrogen 7 mg/dL (9-16); Calcium 8.9 mg/dL (8.4-10.2); Carbon Dioxide 22 mmol/L (22-29); Chloride 107 mmol/L (96-108); Creatinine Clr Calc Pharmacy 159.9; Estimated Glomerular Filt Rate > 60; Glucose Random 124 mg/dL (60-115); Lipase 12 U/L (8-78); Potassium 3.5 mmol/L (3.3-5.1); Sodium 138 mmol/L (135-145); Total Protein 6.6 g/dL (6.5-8.0)
--- NOTE | 2023-11-23 21:21 | ED.ABDPAIN ---
HPI - Abdominal Pain General Chief Complaint: Abdominal Pain Stated Complaint: Gallstones worsening pain Time Seen by Provider: 11/23/23 21:08 Source: patient Mode of arrival: ambulatory Limitations: no limitations History of Present Illness ED Provider: Dr. Torie Robles HPI narrative: Patient comes to the emergency room complaining of right upper quadrant pain. Patient states that 2 months ago, she was diagnosed with gallstones. Patient states that due to insurance problems, they were unable to do the surgery. Patient states that in total she has been having intermittent abdominal pain for about 8 months. However, over the last 3 days, the pain has become unbearable. Patient has not been able to eat or drink anything for couple of days due to pain. Patient complaining of nausea and vomiting, no diarrhea. Abdominal pain in the right upper quadrant and epigastric pain radiates towards the back. Patient denies fever or chills. Related Data Previous Rx's ?Medication ?Instructions ?Recorded diphenhydramine HCl 25 mg tablet 50 mg (2 x 25 mg) PO Q6H PRN 04/10/20 (Benadryl Allergy) itching #10 tabs ondansetron HCl 4 mg tablet 4 mg PO Q8H PRN nausea and 11/29/20 (Zofran) vomiting #7 tabs oseltamivir 75 mg capsule (Tamiflu) 75 mg PO Q12H 5 days #10 caps 09/06/21 acetaminophen 500 mg tablet 1,000 mg (2 x 500 mg) PO QID PRN 11/18/21 pain #30 tabs ibuprofen 600 mg tablet 600 mg PO Q6H PRN pain #20 tabs 11/18/21 albuterol sulfate 2.5 mg/0.5 mL 2.5 mg (0.5 mL) inhalation Q4-6H 08/13/22 solution for nebulization PRN shortness of breath or wheezing #30 ea triamcinolone acetonide 55 mcg 2 spray intranasal DAILY #16.9 mL 08/13/22 nasal spray aerosol (Nasacort Allergy) sulfamethoxazole 800 1 tab PO BID #10 tabs 09/12/23 mg-trimethoprim 160 mg tablet (Bactrim DS) levofloxacin 250 mg/10 mL oral 500 mg (20 mL) PO DAILY 7 days 09/15/23 solution #140 mL Allergies Allergy/AdvReac Type Severity Reaction Status Date / Time MOSQUITO BITE Allergy Intermediate BODY PART Uncoded 11/23/23 20:44 SWELLING hazelnuts and mosquitos Allergy Unknown itchy/ Uncoded 11/23/23 20:44 swelling mosquitoes Allergy Unknown severe Uncoded 11/23/23 20:44 local reaction Review of Systems Review of Systems Constitutional : No Weight loss, No Fever, No Chills, No Night Sweats, No Fatigue, No Malaise ENT/Mouth : No Hearing loss, No Ear Pain, No Nasal Congestion, No Sinus Pain, No Hoarseness, No sore throat, No Rhinorrhea, No Swallowing Difficulty Eyes: No Eye Pain, No Swelling, No Redness, No Foreign Body, No Discharge, No Vision Changes Cardiovascular : No Chest Pain, No SOB, No Dyspnea on Exertion, No Orthopnea, No Edema, No Palpitations Respiratory : No Cough, No Sputum, No Wheezing, No Smoke Exposure, No Dyspnea Gastrointestinal : Complaining of nausea and vomiting, No Diarrhea, No Constipation, complaining of right upper quadrant and epigastric pain radiating towards the back Genitourinary : no irregular bleeding, No Dysuria, No Urinary Frequency, No Hematuria, No Urinary Incontinence, No Urgency, No Flank Pain, No Urinary Flow Changes, No Hesitancy Musculoskeletal : No joint pain, No Myalgias, No Joint Swelling Skin : No Skin Lesions, No rash Neuro : No Weakness, No Numbness, No Paresthesias, No Loss of Consciousness, No Dizziness, No Headache Psych : No Anxiety/Panic, No Depression, No SI/HI/AH/VH, No Social Issues, Heme/Lymph: No Bruising, No Bleeding,No Lymphadenopathy Endocrine : No Polyuria, No Polydipsia, No Temperature Intolerance [facility] Past Medical History Medical History No known health problems Surgical History Hx of appendectomy Social History Social History Alcohol intake: current Alcohol intake frequency: holidays/special occasions only Patient Tobacco Use Status: Tobacco use Unknown Advance Directives: No Advance Directives Information Provided: No Physical Exam ED Vital Signs: Vital Signs - 24 hr 11/23/23 20:43 Temperature 97.3 F Pulse Rate 67 Respiratory Rate 16 Blood Pressure 127/81 Pulse Oximetry 99 Oxygen Delivery Method Room Air BMI result Body Mass Index 34.4 Const Other: Appearance: Alert. Oriented X3. Looks uncomfortable, in position Eyes: Pupils equal, round and reactive to light. ENT: Pharynx normal. Neck: Normal inspection. Neck supple. No lymph nodes noted. No crepitus CVS: Normal heart rate and rhythm. Pulses normal. Normal S1 and S2 Respiratory: No respiratory distress. Breath sounds normal. No Wheezing. No rales Abdomen: Soft , tenderness to palpation in epigastric and right upper quadrant, positive Sebastian sign Skin: Skin warm and dry. Normal skin color. Normal skin turgor. Extremities: No lower extremity edema. No Lacerations. No Rash Neuro: Oriented X 3. No motor deficit. No sensory deficit. Moving all extremities. No slurred speech. CN 2 through 12 grossly intact Psych: calm, cooperative, normal affect Course Course Course Narrative: -patient known to have cholelithiasis, ultrasound pending to rule out acute cholecystitis. -patient receiving IV fluids, Zofran and Toradol. Medical Decision Making Medical Decision Making [facility] Narrative: My interpretation of labs: Normal hematology and chemistry, LFTs normal. -however, despite pain medications, patient continues having significant right upper quadrant pain. -I discussed the patient with Dr. Gonzales, patient being admitted Differential Diagnosis Differential Diagnoses: The differential diagnosis associated with the presentation includes (Choledocholithiasis, cholecystitis, pancreatitis) Admission/Observation Consideration of admission/observation: Escalation of care including admission/observation considered Consult Healthcare Provider Management of the patient was discussed with: [employer] Lab Data [facility] Lab Attestation statement: I reviewed the patient's lab results. 11/23/23 21:29 11/23/23 20:58 Labs: Lab Results 11/23/23 11/23/23 Range/Units 20:58 21:29 WBC 9.1 (4.8-10.8) X10*3/uL RBC 4.29 (4.20-5.50) X10*6/uL Hgb 12.7 (12.0-16.0) g/dl Hct 37.2 (37.0-47.0) % MCV 86.7 (80.0-98.0) fL MCH 29.6 (27.0-33.0) pg MCHC 34.1 (31.0-35.0) g/dl RDW 12.3 (11.0-16.0) % Plt Count 274 (160-400) X10*3/uL MPV 9.4 (9.4-12.3) fL Immature Gran % (Auto) 0.3 (0.0-0.4) % Neut % (Auto) 63.1 (45-73) % Lymph % (Auto) 28.3 (20-40) % Hitchcock % (Auto) 6.8 (2-11) % Eos % (Auto) 0.7 (0-4) % Baso % (Auto) 0.8 (0-2) % Lymph # (Auto) 2.6 (1.2-4.9) X10*3/uL [place]cock # (Auto) 0.6 (0.1-1.2) X10*3/uL Eos # (Auto) 0.1 (0.0-0.4) X10*3/uL Baso # (Auto) 0.1 (0.0-0.2) X10*3/uL Abs Immat Gran (auto) 0.03 (0.00-0.03) X10*3/uL Absolute Neuts (auto) 5.7 (2.0-8.3) x10*3/uL Absolute Nucleated RBC 0.000 (0.0-0.012) X10*3/uL Nucleated RBC % (auto) 0.0 (0.0-0.2) /100WBC Sodium 138 (135-145) mmol/L Potassium 3.5 (3.3-5.1) mmol/L Chloride 107 (96-108) mmol/L Carbon Dioxide 22 (22-29) mmol/L Anion Gap 13 (12-20) BUN 7 L (9-16) mg/dL Creatinine 0.66 (0.5-1.4) mg/dL Estim Creat Clear Calc 159.9 Estimated GFR > 60 Random Glucose 124 H (60-115) mg/dL Calcium 8.9 (8.4-10.2) mg/dL Total Bilirubin 0.2 (0.0-1.0) mg/dL Direct Bilirubin < 0.2 (0.0-0.5) mg/dL AST 9 (5-31) U/L ALT 11 (0-31) U/L Alkaline Phosphatase 56 (39-117) U/L Total Protein 6.6 (6.5-8.0) g/dL Albumin 3.7 (3.5-5.0) g/dL Lipase 12 (8-78) U/L Beta HCG, Quant < 2 mIU/mL Independent Interpretation I performed an independent interpretation of an: Ultrasound Radiology Impression Discussion of test interpretation with radiology: I have reviewed the radiologist's reading. Radiologist Impression: FINDINGS: GALLBLADDER: There are multiple gallstones, with a [id number] complex. There is gallbladder wall thickening to 4 mm. There is a pericholecystic fluid. COMMON BILE DUCT: Normal in caliber measuring 0.4 cm in diameter. US/US abdomen limited IMPRESSION: Findings are consistent with marked cholelithiasis and mild acute cholecystitis. Medications Administered Discontinued Medications Generic Name Dose Route Start Last Admin Trade Name Freq PRN Reason Stop Dose Admin Sodium Chloride 1,000 mls @ 999 mls/hr 11/23/23 21:19 11/23/23 21:39 Ns IVCONT 11/23/23 22:19 999 mls/hr .Q1H1M ONE Administration Ketorolac Tromethamine 30 mg 11/23/23 21:19 11/23/23 21:39 Ketorolac Tromethamine 30 Mg/Ml Vial IVPUSH 11/23/23 21:20 30 mg ONCE ONE Administration Ondansetron HCl 4 mg 11/23/23 21:19 11/23/23 21:39 Ondansetron Hcl 4 Mg/2 Ml Vial IVPUSH 11/23/23 21:20 4 mg ONCE ONE Administration Critical Care Time Critical Care Time Critical Care Time: Yes Total Critical Care Time: 60 Attestation: I have personally provided critical care time. Time includes review of lab data, radiology results, discussion with consultants, and monitoring for potential decompensation. Intervention performed as documented. Discharge Plan Discharge Clinical Impression: Acute cholecystitis Patient Disposition: Admitted As Inpatient Prescriptions: No Action diphenhydramine HCl [Benadryl Allergy] 25 mg tablet 50 mg PO Q6H PRN (Reason: itching) Qty: 10 0RF ondansetron HCl [Zofran] 4 mg tablet 4 mg PO Q8H PRN (Reason: nausea and vomiting) Qty: 7 0RF acetaminophen 500 mg tablet 1,000 mg PO QID PRN (Reason: pain) Qty: 30 0RF ibuprofen 600 mg tablet 600 mg PO Q6H PRN (Reason: pain) Qty: 20 0RF oseltamivir [Tamiflu] 75 mg capsule 75 mg PO Q12H 5 Days Qty: 10 0RF sulfamethoxazole-trimethoprim [Bactrim DS] 800-160 mg tablet 1 tab PO BID Qty: 10 0RF levofloxacin 250 mg/10 mL solution 500 mg PO DAILY 7 Days Qty: 140 0RF albuterol sulfate 2.5 mg/0.5 mL solution for nebulization 2.5 mg inhalation Q4-6H PRN (Reason: shortness of breath or wheezing) Qty: 30 0RF triamcinolone acetonide [Nasacort Allergy] 55 mcg aerosol,spray 2 spray intranasal DAILY Qty: 16.9 0RF Rx Instructions: administer into each nostril Print Language: Bhutanese
[2023-11-23 21:28] LABS: Bilirubin Direct < 0.2 mg/dL (0.0-0.5)
[2023-11-23 21:35] LABS: Basophils Absolute Auto 0.1 X10*3/uL (0.0-0.2); Basophils Percent Auto 0.8 % (0-2); Eosinophils Absolute Auto 0.1 X10*3/uL (0.0-0.4); Eosinophils Percent Auto 0.7 % (0-4); Hematocrit 37.2 % (37.0-47.0); Hemoglobin 12.7 g/dl (12.0-16.0); Imm Gran Abs Auto 0.03 X10*3/uL (0.00-0.03); Imm Gran Pct Auto 0.3 % (0.0-0.4); Lymphocytes Absolute Auto 2.6 X10*3/uL (1.2-4.9); Lymphocytes Percent Auto 28.3 % (20-40); MANUAL DIFF FLAG NO; Mean Corpuscular HGB Conc 34.1 g/dl (31.0-35.0); Mean Corpuscular Hemoglobin 29.6 pg (27.0-33.0); Mean Corpuscular Volume 86.7 fL (80.0-98.0); Mean Platelet Volume 9.4 fL (9.4-12.3); Monocytes Absolute Auto 0.6 X10*3/uL (0.1-1.2); Monocytes Percent Auto 6.8 % (2-11); Neutrophils Absolute Auto 5.7 x10*3/uL (2.0-8.3); Neutrophils Percent Auto 63.1 % (45-73); Platelet Count 274 X10*3/uL (160-400); Red Blood Count 4.29 X10*6/uL (4.20-5.50); Red Cell Distribution Width 12.3 % (11.0-16.0); White Blood Count 9.1 X10*3/uL (4.8-10.8)
[2023-11-23] MEDS: Ketorolac Tromethamine 30 MG/ML VIAL IVPUSH (21:39)
[2023-11-23] MEDS: 0.9 % Sodium Chloride 1,000 ML 999 ML IVCONT (21:39)
[2023-11-23] MEDS: ondansetron HCL 4 MG/2 ML VIAL IVPUSH (21:39)
[2023-11-23 21:42] LABS: HCG Quantitative < 2 mIU/mL
[2023-11-24] VITALS (10 sets, daily range): BP systolic 95–119; BP diastolic 55–66; PULSE 49–70; RESP 12–20; TEMP 35.9–36.6; O2SAT 94–100
--- NOTE | 2023-11-24 00:11 | PC.NURSE ---
ABX admin delayed d/t provider ordering BCX/lactic at 0010.
[2023-11-24 00:57] LABS: Appearance Urine Clear; Color Urine Yellow; Glucose Urine UA Negative (Negative); Leukocyte Esterase Urine Negative (Negative); Nitrite Urine Negative (Negative); Urine Blood Negative (Negative); Urine Ketones Negative (Negative); Urine Protein Negative (Neg-Trace)
[2023-11-24 01:08] LABS: Lactic Acid 0.7 mmol/L (0.5-2.0)
[2023-11-24] MEDS: Piperacillin Sodium/Tazobactam 3.375 GM in 0.9 % Sodium Chloride 50 ML IV ×2 (01:15→05:00)
[2023-11-24] MEDS: 0.9 % Sodium Chloride Flush 3 ML SYRINGE IVFLUSH ×3 (01:17→15:22)
[2023-11-24] MEDS: Morphine Sulfate 4 MG/ML CARTRIDGE 3 MG IVPUSH (04:56)
--- NOTE | 2023-11-24 08:51 | PM.HPGS ---
History of Present Illness History of Present Illness Date of Service: 11/24/23 Chief complaint: Gallstones Narrative: Sylwia Pastor is a 33 year old female admitted because of gallstones. She has been having pain on the epigastric area and the right side of her abdomen for several months now on and off. She actually was seen in the surgical office by Dr. Inman last Sep, 2023 because of gallstones seen on ultrasound. This was deemed to be the etiology of her pain. She was scheduled to have laparoscopic cholecystectomy but she says that this was not done because of issues with her insurance. She continued to have periodic pain with a particularly severe episode 2 days ago she says she therefore decided to come to the ER She any nausea or vomiting. She denies any fever or chills. She has good oral intake. She says her as her pain level is low at this time but she says that would come and go. Review of Systems Constitutional: Constitutional: Denies chills and Denies fever(s) Cardiovascular: Cardiovascular: Denies chest pain, Denies dyspnea and Denies dyspnea on exertion Respiratory: Respiratory: Denies cough, Denies dyspnea and Denies dyspnea on exertion Gastrointestinal: Gastrointestinal: Denies hematochezia and Denies change in bowel habits Genitourinary: Genitourinary: Denies hematuria Musculoskeletal: Musculoskeletal: Denies back pain and Denies limited range of motion Neurologic: Denies focal weakness and Denies convulsions Psychiatric: Psychiatric: Denies depression and Denies mood swings PMF Past Medical History Medical History (Updated 11/24/23 @ 08:53 by Angel Gonzales MD) Asthma No known health problems Surgical History Surgical History Hx of appendectomy Social History Social History Alcohol intake: current Alcohol intake frequency: holidays/special occasions only Patient Tobacco Use Status: Tobacco use Unknown Advance Directives: No Advance Directives Information Provided: No Meds Allergies Allergy/AdvReac Type Severity Reaction Status Date / Time MOSQUITO BITE Allergy Intermediate BODY PART Uncoded 11/23/23 20:44 SWELLING hazelnuts and mosquitos Allergy Unknown itchy/ Uncoded 11/23/23 20:44 swelling mosquitoes Allergy Unknown severe Uncoded 11/23/23 20:44 local reaction Active Medications: Current Medications Acetaminophen (Acetaminophen 325 Mg Tablet) 650 mg PO Q6H PRN PRN Reason: Pain, Mild (Pain Scale 1-3), fever or headache Calcium Carbonate (Calcium Carbonate 750 Mg Tab.Chew) 750 mg PO Q4H PRN PRN Reason: Heartburn Piperacillin Sod/Tazobactam (Sod 3.375 gm/ Sodium Chloride) 50 mls @ 100 mls/hr IV Q6H [facility] Last Infusion: 11/24/23 07:54 Dose: Infused Magnesium Hydroxide (Milk Of Magnesia 30 Ml Oral.Susp) 30 ml PO DAILY PRN PRN Reason: Constipation Melatonin (Melatonin 3 Mg Tablet) 6 mg PO BEDTIME PRN PRN Reason: Insomnia Morphine Sulfate (Morphine Sulfate 4 Mg/Ml Cartridge) 3 mg IVPUSH Q4H PRN; Protocol PRN Reason: Pain, Severe (Pain Scale 7-10) Last Admin: 11/24/23 04:56 Dose: 3 mg Ondansetron HCl (Ondansetron Hcl 4 Mg/2 Ml Vial) 4 mg IVPUSH Q6H PRN PRN Reason: nausea Sodium Chloride (0.9 % Sodium Chloride Flush 3 Ml Syringe) 3 ml IVFLUSH QSHIFT [facility] Last Admin: 11/24/23 07:55 Dose: 3 ml Physical Exam Vital Signs: Vital Signs: Last Vital Signs Temp 97.8 F 11/24/23 08:08 Pulse 49 L 11/24/23 08:08 Resp 16 11/24/23 08:08 BP 95/58 L 11/24/23 08:08 Pulse Ox 98 11/24/23 08:08 O2 Del Method Room Air 11/24/23 08:08 BMI result Body Mass Index 34.4 Const: General: comfortable and no acute distress Orientation/consciousness: patient oriented x3 Neck: Neck: Yes no lymphadenopathy Resp: Auscultation: clear to auscultation bilaterally Cardio: Rhythm: regular rhythm GI: Other: Minimal tenderness on the epigastric area at this time Palpation (GI): Soft to palpation, nontender and no guarding Neuro: General: patient oriented x3 Results Results Labs: Short CBC 11/23/23 Range/Units 21:29 WBC 9.1 (4.8-10.8) X10*3/uL Hgb 12.7 (12.0-16.0) g/dl Hct 37.2 (37.0-47.0) % Plt Count 274 (160-400) X10*3/uL BMP 11/23/23 20:58 Sodium 138 Potassium 3.5 Chloride 107 Carbon Dioxide 22 BUN 7 L Creatinine 0.66 Calcium 8.9 Liver Function 11/23/23 Range/Units 20:58 Total Bilirubin 0.2 (0.0-1.0) mg/dL Direct Bilirubin < 0.2 (0.0-0.5) mg/dL AST 9 (5-31) U/L ALT 11 (0-31) U/L Alkaline Phosphatase 56 (39-117) U/L Albumin 3.7 (3.5-5.0) g/dL Urine 11/24/23 Range/Units 00:44 Urine Color Yellow Urine Appearance Clear Urine pH 7.0 (5.0-9.0) Ur Specific [place] 1.010 (1.005-1.025) Urine Protein Negative (Neg-Trace) mg/dL Urine Glucose (UA) Negative (Negative) mg/dL Abdominal ultrasound report/results: report reviewed and image reviewed Assessment and Plan (1) Acute cholecystitis: Status: Acute 33 year female here because of the epigastric pain and right-sided abdominal pain. She has known gallstones and has had this problem for several months now. She was actually scheduled to have cholecystectomy because of her gallstones. She wants to proceed with cholecystectomy as an inpatient because of her persistent pain as well as recurrences at home. I had a long discussion with her about the technique of laparoscopic cholecystectomy and possible open cholecystectomy. I reviewed the risks including but not limited to bleeding, infections, injury to other organs including the liver, the bile ducts, adjacent bowel, retained stones, bile leak, inherent risks of anesthesia, as well as the benefits and alternatives. She does have a relatively high BMI he understands that this increases her perioperative risks. She has given consent. Quality Stroke Does the patient have a stroke diagnosis?: No VTE Prior VTE?: No VTE Risk Level:: Medical - moderate - high VTE Device Contraindication: N/A - Device Ordered VTE Drug Contraindication: N/A - Med Ordered Procedures Date of Service Date of Service: 11/24/23
--- NOTE | 2023-11-24 09:17 | PHA.MEDREC ---
Pharmacy Consult ? Medication Reconciliation Pharmacy has completed the medication reconciliation.
--- NOTE | 2023-11-24 10:15 | HO.ANESPROP2 ---
[facility] Active Problems Active Problems: All Active Problems Asthma (Acute) Acute cholecystitis (Acute) Cholecystitis, acute with cholelithiasis (Acute) Past Medical History Medical History Asthma No known health problems Family History Family history of problems with anesthesia: No Surgical History Surgical History Hx of appendectomy History of Problems with Anesthesia: No Social History Social History Household Members: Children Housing: Apartment Alcohol intake: current Alcohol intake frequency: holidays/special occasions only Patient Tobacco Use Status: Never used Tobacco Use of substances other than those prescribed or required for medical reasons: No Do you feel safe in your current relationship?: No Current Relationship Advance Directives: No Advance Directives Information Provided: No Do you have a plan to hurt others: No Plan Recently lost weight without trying: Unsure Nutrition Risks: Poor intake 0-25% >4 days Patient : No : No Meds Allergies Allergy/AdvReac Type Severity Reaction Status Date / Time MOSQUITO BITE Allergy Intermediate BODY PART Uncoded 11/23/23 20:44 SWELLING hazelnuts and mosquitos Allergy Unknown itchy/ Uncoded 11/23/23 20:44 swelling mosquitoes Allergy Unknown severe Uncoded 11/23/23 20:44 local reaction Active Medications: Current Medications Acetaminophen (Acetaminophen 325 Mg Tablet) 650 mg PO Q6H PRN PRN Reason: Pain, Mild (Pain Scale 1-3), fever or headache Albuterol Sulfate (Albuterol Sulfate 90 Mcg 8 Gm Inhaler) 2 puff INHALE Q6H PRN PRN Reason: Shortness Of Breath Or Wheezing Calcium Carbonate (Calcium Carbonate 750 Mg Tab.Chew) 750 mg PO Q4H PRN PRN Reason: Heartburn Piperacillin Sod/Tazobactam (Sod 3.375 gm/ Sodium Chloride) 50 mls @ 100 mls/hr IV Q6H MARY Last Infusion: 11/24/23 07:54 Dose: Infused Magnesium Hydroxide (Milk Of Magnesia 30 Ml Oral.Susp) 30 ml PO DAILY PRN PRN Reason: Constipation Melatonin (Melatonin 3 Mg Tablet) 6 mg PO BEDTIME PRN PRN Reason: Insomnia Morphine Sulfate (Morphine Sulfate 4 Mg/Ml Cartridge) 3 mg IVPUSH Q4H PRN; Protocol PRN Reason: Pain, Severe (Pain Scale 7-10) Last Admin: 11/24/23 04:56 Dose: 3 mg Ondansetron HCl (Ondansetron Hcl 4 Mg/2 Ml Vial) 4 mg IVPUSH Q6H PRN PRN Reason: nausea Sodium Chloride (0.9 % Sodium Chloride Flush 3 Ml Syringe) 3 ml IVFLUSH QSHIFT [facility] Last Admin: 11/24/23 07:55 Dose: 3 ml Home Medications ?Medication ?Instructions ?Recorded ?Confirmed ?Last Taken ?Type albuterol sulfate 90 mcg/actuation 2 puff inhalation Q6H PRN 11/24/23 11/24/23 Unknown History aerosol inhaler Shortness Of Breath Or Wheezing ibuprofen 200 mg tablet 400 mg PO Q8H PRN Pain 11/24/23 11/24/23 Unknown History Exam Height,Weight and Vital Signs: Height 5 ft 9 in Weight 105.8 kg Last Vital Signs Temp 96.9 F 11/24/23 09:21 Pulse 52 11/24/23 09:21 Resp 18 11/24/23 09:21 BP 101/66 11/24/23 09:21 Pulse Ox 99 11/24/23 09:21 O2 Del Method Room Air 11/24/23 09:21 Pertinent Lab Results Pertinent Lab Results: Laboratory Tests 11/23/23 11/23/23 11/24/23 20:58 21:29 00:44 WBC 9.1 RBC 4.29 Hgb 12.7 Hct 37.2 MCV 86.7 MCH 29.6 MCHC 34.1 RDW 12.3 Plt Count 274 MPV 9.4 Immature Gran % (Auto) 0.3 Neut % (Auto) 63.1 Lymph % (Auto) 28.3 [place] % (Auto) 6.8 Eos % (Auto) 0.7 Baso % (Auto) 0.8 Lymph # (Auto) 2.6 [place] # (Auto) 0.6 Eos # (Auto) 0.1 Baso # (Auto) 0.1 Abs Immat Gran (auto) 0.03 Absolute Neuts (auto) 5.7 Absolute Nucleated RBC 0.000 Nucleated RBC % (auto) 0.0 Sodium 138 Potassium 3.5 Chloride 107 Carbon Dioxide 22 Anion Gap 13 BUN 7 L Creatinine 0.66 Estim Creat Clear Calc 159.9 Estimated GFR > 60 Random Glucose 124 H Lactic Acid 0.7 Calcium 8.9 Total Bilirubin 0.2 Direct Bilirubin < 0.2 AST 9 ALT 11 Alkaline Phosphatase 56 Total Protein 6.6 Albumin 3.7 Lipase 12 Beta HCG, Quant < 2 Urine Color Yellow Urine Appearance Clear Urine pH 7.0 Ur Specific [place] 1.010 Urine Protein Negative Urine Glucose (UA) Negative Urine Ketones Negative Urine Blood Negative Urine Nitrite Negative Ur Leukocyte Esterase Negative Airway Mallampati Class: II TM Dist: >3cm Neck ROM: Full Heart: RRR Lungs: CTA Assessment and Plan Assessment Anesthesia Assessment: Anesthesia Plan Discussed Final Anesthetic Review Family History of Problems with Anesthesia: No History of Problems with Anesthesia: No NPO: Yes ASA Class: II Final Preanesthetic Review: Meds/Allgs Chart Reviewed, Consent Obtained/Reviewed and Anes Risks/Benef Reviewed Patient Risk: Intermediate Procedure Risk: Low Anesthetic Plan Anesthetic Plan: GA Disposition: Standard PACU
--- NOTE | 2023-11-24 11:51 | MHC.CM.PN ---
Addendum entered by Mandy Way RN 11/24/23 15:25: Patient lives in an apartment w/ 10 year old dtr. Functionally independent. PCP @ [facility] No HCP. CM provided education and offered assistance. Patient declined. DP: Goal is home self care tomorrow. CM will continue to follow. Original Note: CM attempted to meet w/ patient. Patient off unit at this time. Will continue attempts to complete CM assessment.
--- NOTE | 2023-11-24 12:00 | P.OP_ITS ---
Operative Note Operative Note Date of Service: 11/24/23 Narrative: Preop diagnosis: Acute on chronic calculous cholecystitis Postop diagnosis: The same Procedure: Laparoscopic cholecystectomy, extensive lysis of adhesions Surgeon: Angel Gonzales MD assistant facility manager: RIC Olsen The patient is a 33 year old female with known gallstones, with frequent episodes of epigastric and right upper quadrant pain, admitted for another episode x2 days. Ultrasound showed gallstones again with some wall thickening. Overall clinical picture was consistent with acute cholecystitis. She wanted to proceed with cholecystectomy. She understood the technique of laparoscopic cholecystectomy and was aware of the risks, benefits, and alternatives. She was brought to the operating room placed supine under general anesthesia via endotracheal tube. The abdomen was prepped and draped in the usual sterile fashion. A surgical time-out was done. The patient was receiving scheduled IV Zosyn I made a short incision on the supraumbilical margin using a blade 15. This was carried down through the full-thickness of the skin and subcutaneous fat down to the fascia. The fascia was incised. The peritoneum was entered. Through this incision a Wheeler port was introduced. Pneumoperitoneum was introduced to a pressure of 15 mm Hg. From here on the rest of the procedure was done under vision with the 10 mm laparoscope. With laparoscopic visualization I proceeded to insert a 5/12 mm port in the epigastric area. Two 5 mm ports introduced a small incision below the subcostal margin along the anterior axillary line and the midclavicular line. Graspers were placed through this working ports. The patient was placed in a head up and [id number] position. The fundus of the gallbladder was seen but the rest of the gallbladder was covered with adhesions and omental fat. I was able to apply a grasper at the fundus of the gallbladder to retract this cephalad. I had to do a lot of dissection to release this adherent fibrous adhesions and omentum off of the anterior wall of the gallbladder. Further were, there were noted adhesions in the area adjacent to the liver as well as the left side. I had to do lysis of adhesions using blunt dissection as well as with Endo scissors to release this Eventually was able to expose the entire gallbladder. I was able to apply another grasper towards the pouch of the gallbladder and this was used to retract the gallbladder laterally. At this point the gallbladder was being retracted in the cephalad and lateral fashion to put the area of the cystic duct on stretch. There was note of heavy finrotic adhesions surrounding the neck so we had to more dissection with the [place] dissector until was able to clearly identify the cystic duct. Findings are also consistent with chornic cholecystitis. The cystic artery was also seen. I was able to confirm the confluence of the neck of the gallbladder with the cystic duct. With critical view of the hepatocystic triangle seen, I applied clips on the cystic duct with 2 clips being applied distally. The cystic duct was transected between clips with Endo scissors. The cystic artery was also clipped in the same fashion and transected as well with Endo scissors. There were some other fibrous bands that we clipped and divided with endo-scissors. Eventually was able to visualize the hilum and this was divided gently with electrocautery. The interface of the gallbladder wall and the liver bed was identified and I used the electrocautery spatula to incise the peritoneum and define a plane of dissection between the gallbladder wall and the liver bed. Patient had signs of chronic cholecystitis there so there was note of some fibrotic changes in the area but we are able to carefully separate the gallbladder all the way to the fundus with slow dissection. The gallbladder was retrieved through an endobag through the umbilical incision. I reinserted all ports and re-insufflated. I irrigated the area and suctioned out the irrigant fluid. There was note of good hemostasis. There was no evidence of any bleeding or any bile leak. I observed all 4 quadrants. There were some adhesions in the right lower quadrant from previous appendectomy. There were no other pathology or any signs of bowel injury at all I re-examined the subhepatic space. This remained dry I therefore desufflated the port sites and removed all ports under vision with the laparoscope. The umbilical port was removed last. The fascia of the umbilical incision was closed with a [id number] Polysorb 0 stitch. All skin incisions were closed with Polysorb 4-0 subcuticular ordoñez tures. All incisions were infiltrated with Marcaine 0.5% for postop analgesia. Steri-Strips and dressings were applied The patient tolerated procedure well. There were no immediate complications. Initial and final counts of sponges and instruments were correct. Estimated blood loss was about 5 cc. The patient was extubated without difficulty and transferred to the recovery room with stable vital signs.
[2023-11-24] MEDS: ondansetron HCL 4 MG/2 ML VIAL IVPUSH (13:23)
--- NOTE | 2023-11-24 15:05 | PM.EVENT ---
Event Note Date of Service: 11/24/23 Event Note: Seen postop Underwent uneventful lap phuong earlier Says she has adequate pain control Looks well Stable vital signs Abdomen soft Pain management On diet Family at bedside Plan to DC home tomorrow Time Spent With Patient Time: Total time managing care of this patient today ____ minutes.
[2023-11-24] MEDS: Lactated Ringers 1,000 ML 80 ML IVCONT (15:20)
[2023-11-24] MEDS: oxyCODONE HCl Immed Release 5 MG TABLET 10 MG PO (19:31)
[2023-11-25] VITALS: BP 110/55; PULSE 51; RESP 16; TEMP 37.1; O2SAT 95
[2023-11-25] MEDS: Lactated Ringers 1,000 ML 80 ML IVCONT (02:39)
[2023-11-25 04:00] VITALS: BP 106/55; PULSE 53; RESP 16; TEMP 37; O2SAT 96
[2023-11-25 07:11] VITALS: BP 113/58; PULSE 54; RESP 14; TEMP 36.8; O2SAT 98
--- NOTE | 2023-11-25 09:12 | P.PNGS_ITS ---
Subjective Subjective Date of Service: 11/25/23 Interval history: feels well good pain control tolerating diet Physical Exam 2 Vital Signs: Vital Signs: Last Vital Signs Temp 98.2 F 11/25/23 07:11 Pulse 54 11/25/23 07:11 Resp 14 11/25/23 07:11 BP 113/58 L 11/25/23 07:11 Pulse Ox 98 11/25/23 07:11 O2 Del Method Room Air 11/25/23 07:11 BMI result Body Mass Index 34.4 Const: General: comfortable and no acute distress Eyes: Sclerae: sclerae normal Resp: Effort & Inspection: normal respiratory effort Cardio: Rate: regular rate GI: Other: dressings dry Palpation (GI): Soft to palpation, not firm and no guarding Objective Data Active Medications Acetaminophen (Acetaminophen 325 Mg Tablet) 650 mg PO Q6H PRN PRN Reason: Pain, Mild (Pain Scale 1-3), fever or headache Albuterol Sulfate (Albuterol Sulfate 90 Mcg 8 Gm Inhaler) 2 puff INHALE Q6H PRN PRN Reason: Shortness Of Breath Or Wheezing Calcium Carbonate (Calcium Carbonate 750 Mg Tab.Chew) 750 mg PO Q4H PRN PRN Reason: Heartburn Lactated Ringer's (Lr) 1,000 mls @ 80 mls/hr IVCONT .[id number] MARY Last Infusion: 11/25/23 07:56 Dose: 0 mls/hr Documented By: CE Magnesium Hydroxide (Milk Of Magnesia 30 Ml Oral.Susp) 30 ml PO DAILY PRN PRN Reason: Constipation Melatonin (Melatonin 3 Mg Tablet) 6 mg PO BEDTIME PRN PRN Reason: Insomnia Morphine Sulfate (Morphine Sulfate 4 Mg/Ml Cartridge) 3 mg IVPUSH Q4H PRN; Protocol PRN Reason: Pain, Severe (Pain Scale 7-10) Last Admin: 11/24/23 04:56 Dose: 3 mg Documented By: AMIRA Ondansetron HCl (Ondansetron Hcl 4 Mg/2 Ml Vial) 4 mg IVPUSH Q6H PRN PRN Reason: nausea Last Admin: 11/24/23 13:23 Dose: 4 mg Documented By: CE Oxycodone HCl (Oxycodone Hcl Immed Release 5 Mg Tablet) 10 mg PO Q4H PRN PRN Reason: Pain, Moderate(Pain Scale 4-6) Last Admin: 11/24/23 19:31 Dose: 10 mg Documented By: SHERYL Sodium Chloride (0.9 % Sodium Chloride Flush 3 Ml Syringe) 3 ml IVFLUSH QSHIFT [facility] Last Admin: 11/25/23 07:55 Dose: Not Given Documented By: CE Non-Admin Reason: no IV site Labs 11/23/23 21:29 11/23/23 20:58 Labs: Laboratory Results - last 24 hr 11/24/23 09:16 Blood Type A Negative Antibody Screen NEGATIVE Microbiology Microbiology Results: Microbiology 11/24/23 00:41 Blood Culture - Preliminary Blood - Venous No growth after 24 hours. 11/24/23 00:44 Blood Culture - Preliminary Blood - Venous No growth after 24 hours. Procedures Date of Service Date of Service: 11/25/23 Progress Note: A&P Assessment and plan (1) Acute cholecystitis: Status: Acute Assessment and Plan: S/P lap phuong doing very well good pain control ok to dc home instructions reinforced with patient ffup in office Time Spent With Patient Time: Total time managing care of this patient today ____ minutes. Quality Stroke Does the patient have a stroke diagnosis?: No VTE Prior VTE?: No VTE Risk Level:: Medical - moderate - high VTE Device Contraindication: N/A - Device Ordered VTE Drug Contraindication: N/A - Med Ordered
--- NOTE | 2023-11-25 09:21 | MHC.CM.PN ---
Patient medically cleared for dc home self care via private transport.
--- NOTE | 2023-11-25 15:35 | PM.DS ---
DS: Providers Provider Date of Service: 11/25/23 Date of admission: 11/24/23 01:11 Date of discharge: 11/25/23 Primary care physician: [facility] Attending physician on admission: Angel Gonzales Attending physician on discharge: Angel Gonzales DS: Diagnosis Discharge Diagnosis (1) Acute cholecystitis: Status: Acute DS: Summary Hospital Course Hospital Course: HPI AT ADMISSION: Sylwia Pastor is a 33 year old female admitted because of gallstones. She has been having pain on the epigastric area and the right side of her abdomen for several months now on and off. She actually was seen in the surgical office by Dr. Inman last Sep, 2023 because of gallstones seen on ultrasound. This was deemed to be the etiology of her pain. She was scheduled to have laparoscopic cholecystectomy but she says that this was not done because of issues with her insurance. She continued to have periodic pain with a particularly severe episode 2 days ago she says she therefore decided to come to the ER. She any nausea or vomiting. She denies any fever or chills. She has good oral intake. She says her as her pain level is low at this time but she says that would come and go. HOSPITAL COURSE: The patient was admitted to the surgical service for further treatment of the acute cholecystitis. She elected to proceed with laparoscopic cholecystectomy, possible open. She was added onto the OR schedule for that day. On 11/24/23, a laparoscopic cholecystectomy was performed by Dr. Gonzales without complication. The patient tolerated the procedure well. She had an uncomplicated recovery course. On POD #1, she felt well and was tolerating a solid diet without nausea or vomiting, had good pain control and was ambulating without difficulty. She was hemodynamically stable. Her abdomen was benign with appropriate post op tenderness and clean and intact dressings. She felt ready for discharge. She was discharged to home on 11/25/23 in stable condition. She is to follow up in the office in 2 weeks. Time Attestation Discharge Coordination Time (in mins): 30 Quality: Safe Use of Opioids Does Pt have an Active Cancer Diagnosis on the Problem List?: No Quality: Stroke Does the patient have a stroke diagnosis?: No Physical Exam Vital Signs: Vital Signs: Last Vital Signs Temp 98.2 F 11/25/23 07:11 Pulse 54 11/25/23 07:11 Resp 14 11/25/23 07:11 BP 113/58 L 11/25/23 07:11 Pulse Ox 98 11/25/23 07:11 O2 Del Method Room Air 11/25/23 07:11 BMI result Body Mass Index 34.4 Const: General: comfortable, no acute distress and alert GI: Inspection: No distended and Yes incision (dressings intact) Palpation (GI): Soft to palpation and no guarding Skin: General skin exam: no rashes or lesions noted and no jaundice DS: Data Data Completed and Pending Pending studies at discharge: Pending at discharge 11/24/23 11:36 Surgical [PTH] Routine Labs on day of discharge: Preliminary micro results at discharge 11/24/23 00:41 Blood Culture - Preliminary Blood - Venous No growth after 48 hours. 11/24/23 00:44 Blood Culture - Preliminary Blood - Venous No growth after 48 hours. Discharge Plan Discharge Anticipated Discharge Date/Time: 11/25/23 12:08 Patient Disposition: Home, Self-Care Discharge Diagnosis: acute cholecystitis Referrals: [facility] [Primary Care Provider] - 1 Week Discharge Medications: New oxycodone-acetaminophen [Percocet] 5-325 mg tablet 1 tab PO Q4-6H PRN (Reason: pain) Qty: 25 0RF Rx Instructions: Partial Fill upon patient request. ibuprofen 600 mg tablet 600 mg PO Q6H PRN (Reason: pain) Qty: 30 0RF Continued albuterol sulfate 90 mcg/actuation Hfa Aerosol Inhaler 2 puff INHALATION Q6H PRN (Reason: Shortness Of Breath Or Wheezing) Discontinued ibuprofen 200 mg Tablet 400 mg PO Q8H PRN (Reason: Pain) Discharge Orders: Discharge Order (Routine); Ordered 11/25/23 Ordered By: Angel Gonzales Diet: Advance to usual diet Activity on Discharge: No heavy lifting Stand Alone Forms: Patient Portal Discharge page Print Language: Maori Activity Restrictions/Additional Instructions: If the incision area is tender, you may apply an ice pack for short intervals (No more than 20 minutes on, followed by at least 20 minutes off). Do not apply heat. Do not use creams, lotions, or topical antibiotics unless instructed to do so by your surgeon. These can cause infection or allergic reaction. No lifting more than 20 lbs Okay to shower starting November 26, 2023 Okay to change dressings with gauze or Band-Aid starting 11/26/2023 No strenuous activities Call the office for follow-up in 2 weeks - with Dr. Gonzales Call Your Doctor If: -Your temperature exceeds 101.5? F -You experience excessive pain or swelling -You have an unexpected reaction to medication -You have excessive bleeding -You experience continued vomiting/nausea -Your incision begins to separate -Your incision shows signs of infection such as increased redness, swelling, excessive pain, drainage (light blood or clear fluid is normal) or heat Care Plan Goals: Pain management Returned to baseline health Health Concerns: Pain control Morbid obesity Plan of Treatment: Oral pain meds Follow up in the office Assessment: Doing well Discharge Date/Time: 11/25/23 10:11
--- NOTE | 2023-11-26 08:08 | HO.POSTANES ---
Post Anesthesia Evaluation Post Anesthesia Evaluation Date of Service: 11/26/23 Anesthesia: General Endotracheal-GETA Comments: Patient was discharged on 11/25/23 before anesthesia team was able to do post-op rounds. Called patient with no answer. Left voicemail to call Short Stay Surgery with any questions or concerns related to anesthesia.
== END 2023-11-25 10:11 | disposition home or self-care (01) | DRG 263 ==
LOC: HO.ED 11-24 00:58 → HO.EDOVER 11-24 01:12 → HO.S3 11-24 07:36
PROVIDERS: Admitting Provider Surgery; Emergency Provider Emergency Medicine; Visit Provider Surgery
PROC: 0FT44ZZ Resection of Gallbladder, Percutaneous Endoscopic Approach (ICD-10-PCS; CPT 47562; principal; 2023-11-24 10:30)
DX: K80.12 Calculus of gallbladder with acute and chronic cholecystitis without obstruction (principal); K82.8 Other specified diseases of gallbladder
CPT/HCPCS: 47562; 36415; 76705; 80053; 81003; 82248; 83605; 83690; 84702; 85025; 86850; 86900; 86901; 87040; 88304; 96361; 96365; 96366; 96375; 96376; 99221; 99285; J1100; J1885; J2250; J2270; J2405; J2543; J2704; J2795; J3010; J7120

== ENCOUNTER → 2023-11-24 01:11 | Outpatient (BNV) | payer MEDICAID, SELFPAY | PROVIDERS: Admitting Provider Surgery; Emergency Provider Emergency Medicine; Visit Provider Surgery | DX: K81.0 Acute cholecystitis (principal) | CPT/HCPCS: 47562; 99024; 99222; 99499 ==

== ENCOUNTER 2023-12-06 14:21 | Outpatient (AMB) | payer MEDICAID, SELFPAY ==
--- NOTE | 2023-12-06 14:46 | A.OFFVIS_ITS ---
Intake Visit Reasons: lap phuong Intake Note: This patient presents for a post-op assessment status post laparoscopic cholecystectomy. Patient c/o; reports no complaints pertaining to surgery. Lab Animal Technologist Required: No Accompanied by: Self / Same As Patient Allergies MOSQUITO BITE Allergy (Intermediate, Uncoded 12/06/23 14:50) BODY PART SWELLING hazelnuts and mosquitos Allergy (Unknown, Uncoded 12/06/23 14:50) itchy/ swelling mosquitoes Allergy (Unknown, Uncoded 12/06/23 14:50) severe local reaction HPI HPI lap phuong: Details: [age] year old female here for follow-up after laparoscopic cholecystectomy. She had undergone laparoscopic cholecystectomy for acute cholecystitis last 11/24/2023. She tolerated procedure well She currently feels well and denies any significant complaints. [facility] Medical History Asthma No known health problems Surgical History Hx of appendectomy Social History Household Members: Children Housing: Apartment Alcohol intake: current Alcohol intake frequency: holidays/special occasions only Patient Tobacco Use Status: Never used Tobacco service: No Review of Systems Const Denies chills and Denies fever(s) Card Denies chest pain, Denies dyspnea and Denies dyspnea on exertion Resp Denies cough, Denies dyspnea and Denies dyspnea on exertion GI Denies hematochezia and Denies change in bowel habits Denies hematuria Musc Denies back pain and Denies limited range of motion Neuro Denies focal weakness and Denies convulsions Psych Denies depression and Denies mood swings Physical Exam GI Other: Incisions clean and dry Assessment & Plan Assessment & Plan (1) Cholecystitis, acute with cholelithiasis: Code(s): K80.00 - Calculus of gallbladder with acute cholecystitis without obstruction Category: Medical Qualifiers: Biliary obstruction: without biliary obstruction Qualified Code(s): K80.00 - Calculus of gallbladder with acute cholecystitis without obstruction Plan: Status post laparoscopic cholecystectomy. She is doing well postoperatively. All incisions are well healed. I advised her to avoid lifting anything more than 20 lb for at least 2 more weeks. She can follow up on a p.r.n. basis. Coding Level of Care Code Global (00134) Diagnoses Calculus of gallbladder with acute cholecystitis without obstruction K80.00 Biliary obstruction: without biliary obstruction
== END 2023-12-06 15:02 | disposition home or self-care (01) ==
PROVIDERS: Visit Provider Surgery
DX: K80.00 Calculus of gallbladder with acute cholecystitis without obstruction (principal)
CPT/HCPCS: 99024

== ENCOUNTER → 2023-12-06 14:21 | Outpatient (BNVA) | payer SELFPAY | PROVIDERS: Visit Provider Surgery | DX: Z09 Encounter for follow-up examination after completed treatment for conditions other than malignant neoplasm (principal); Z87.19 Personal history of other diseases of the digestive system; Z90.49 Acquired absence of other specified parts of digestive tract | CPT/HCPCS: 99212 ==

== ENCOUNTER 2024-04-16 17:45 | Outpatient (REF) | payer SELFPAY | END 2024-04-16 17:46 | disposition home or self-care (01) | LOC: HO.HHCLNP 17:45 | PROVIDERS: Visit Provider Family Medicine | DX: R05.9 Cough, unspecified (principal) | CPT/HCPCS: 36415 ==

== ENCOUNTER 2024-06-27 10:48 | Emergency (ER) | payer MEDICAID, SELFPAY ==
[2024-06-27 11:02] VITALS: BP 138/84; PULSE 84; O2SAT 98
[2024-06-27 11:05] VITALS: BP 121/80; PULSE 85; RESP 18; TEMP 36.7; O2SAT 99; BMI 32.8
--- NOTE | 2024-06-27 11:06 | ED_ITS ---
HPI - General Adult General Chief complaint: General Medical Stated complaint: BODY ACHES, CELIS, ABD PAIN, NAUSEA, WEAKNESS PER EMS Time Seen by Provider: 06/27/24 13:45 Source: patient, RN notes reviewed and old records reviewed Mode of arrival: ambulatory Limitations: no limitations History of Present Illness ED Provider: Nate CHRISTIANSON narrative: 34-year-old female presents for evaluation of body aches, headache, nausea and vomiting. She reports that she has been sick since Sunday, 4 days ago. Her daughter was recently diagnosed with the flu Related Data Home Medications ?Medication ?Instructions ?Recorded ?Confirmed albuterol sulfate 90 mcg/actuation 2 puff inhalation Q6H PRN 11/24/23 11/24/23 aerosol inhaler Shortness Of Breath Or Wheezing Previous Rx's ?Medication ?Instructions ?Recorded ibuprofen 600 mg tablet 600 mg PO Q6H PRN pain #30 tabs 11/24/23 oxycodone-acetaminophen 5 mg-325 1 tab PO Q4-6H PRN pain #25 tabs 11/24/23 mg tablet (Percocet) ondansetron 4 mg disintegrating 4 mg PO Q8H PRN nausea and 06/27/24 tablet vomiting #20 tabs Allergies Allergy/AdvReac Type Severity Reaction Status Date / Time MOSQUITO BITE Allergy Intermediate BODY PART Uncoded 06/27/24 11:08 SWELLING hazelnuts and mosquitos Allergy Unknown itchy/ Uncoded 06/27/24 11:08 swelling mosquitoes Allergy Unknown severe Uncoded 06/27/24 11:08 local reaction Review of Systems Constitutional: Constitutional: Reports body ache(s), Reports chills, Reports fever(s) and Reports headache(s) ENT: Reports headache(s) Cardiovascular: Cardiovascular: Denies dyspnea Respiratory: Respiratory: Reports cough and Denies dyspnea Gastrointestinal: Gastrointestinal: Denies abdominal pain, Reports loose stools, Reports nausea and Reports vomiting Musculoskeletal: Musculoskeletal: Reports myalgias Integumentary/Breasts: Skin/Breast: Denies rash Neurologic: Reports headache(s) Psychiatric: Psychiatric: Denies anxiety PMFSH Past Medical History Medical History Asthma No known health problems Surgical History Hx of appendectomy Social History Social History Household Members: Children Housing: Apartment Alcohol intake: current Alcohol intake frequency: holidays/special occasions only Patient Tobacco Use Status: Never used Tobacco Advance Directives: No Advance Directives Information Provided: Yes service: No Physical Exam ED Vital Signs: Vital Signs - 24 hr 06/27/24 11:05 Temperature 98.0 F Pulse Rate 85 Respiratory Rate 18 Blood Pressure 121/80 Pulse Oximetry 99 Oxygen Delivery Method Room Air BMI result Body Mass Index 32.8 Const General: healthy appearing, comfortable, no acute distress, alert and awake Nutritional Appearance: well nourished Orientation/consciousness: patient oriented x3 HENMT Head: Yes normocephalic and Yes atraumatic Eyes Eyelids: Yes eyelids normal Conjunctivae: conjunctivae normal Sclerae: sclerae normal Corneas: corneas normal Pupils: Equal, round and reactive pupils present EOM: EOMs intact bilaterally Neck Neck: Yes full ROM Resp Effort & Inspection: normal respiratory effort, able to speak in complete s entences and not labored Skin General skin exam: elasticity normal Neuro General: patient oriented x3 Cranial nerves: Yes Equal, round and reactive pupils present and Yes Bilaterally intact EOM present Cognition (Neuro): normal cognition Extrem Other: Moving all extremities well without any obvious deformities Course Course Course Narrative: RME, this is a rapid medical exam performed by Edmond Sullivan please refer to primary provider for complete H&P- 34-year-old female presents for evaluation of fevers, body aches since Sunday, 4 days ago. She reports that her daughter recently was diagnosed flu. Plan for viral swabs. Medical Decision Making Medical Decision Making MDM Narrative: 34-year-old female presents for evaluation of flu-like symptoms. She tested positive for influenza B. She is outside the window for Tamiflu treatment, her vital signs are stable. We will discharge her with symptomatic treatment with Zofran Differential Diagnosis Differential Diagnoses: The differential diagnosis associated with the presentation includes Influenza A Influenza B Viral syndrome Upper respiratory infection Lab Data Labs: Lab Results 06/27/24 Range/Units 12:01 Influenza Type A (PCR) NEGATIVE (Negative) Influenza Type B (PCR) POSITIVE A (Negative) RSV RNA Qual (PCR) NEGATIVE (Negative) SARS-CoV-2 RNA (RT-PCR) NEGATIVE (Negative) Discharge Plan Discharge Clinical Impression: Influenza Patient Disposition: Home, Self-Care Instructions: Influenza (ED) Additional Instructions: You tested positive for influenza B Use ibuprofen/Tylenol for fevers and body aches. You may use Zofran for nausea and vomiting. Drink lots of fluids Prescriptions: New ondansetron 4 mg tablet,disintegrating 4 mg PO Q8H PRN (Reason: nausea and vomiting) Qty: 20 0RF No Action albuterol sulfate 90 mcg/actuation Hfa Aerosol Inhaler 2 puff INHALATION Q6H PRN (Reason: Shortness Of Breath Or Wheezing) oxycodone-acetaminophen [Percocet] 5-325 mg tablet 1 tab PO Q4-6H PRN (Reason: pain) Qty: 25 0RF Rx Instructions: Partial Fill upon patient request. ibuprofen 600 mg tablet 600 mg PO Q6H PRN (Reason: pain) Qty: 30 0RF Print Language: Bangladeshi
[2024-06-27 13:11] LABS: Influenza A PCR NEGATIVE (Negative); Influenza B PCR POSITIVE (Negative); Resp Syncy Virus RNA Qual PCR NEGATIVE (Negative); SARS COV2 PCR INHOUSE NEGATIVE (Negative)
--- OUTSIDE RECORDS SUMMARY | 2024-06-27 13:54 | XMS_ITS | Encounter Summary ---
Author Organization [employer] Address [address] [place] [address] Care Team Providers Care Supervisor Policy Change Clerks Name Role Phone Arlene Mayes NP Primary Care Provider Encounter Details Date Type Department Care Team ([facility] st Contact Info) Description 06/27/2024 Orders Only GENERIC EXTERNAL DATA DEPARTMENT Provider, Generic External Data Social History Tobacco Use Types Packs/Day Years Used Date Smoking Tobacco: Never Smokeless Tobacco: Never Alcohol Use Standard Drinks/Week Comments Defer 0 (1 standard drink = 0.6 oz pur e alcohol) Alcohol Answer Date Recorded Frequency of Alcohol Consumption Not on file 02/11/2024 Average Number of Drinks Not on file 024 Frequency of Binge Drinking Not on file 01/14 Score 0 02/11/2024 Depression Answer Date Recorded Patient Health Questionnaire-9 Score 10 02/11/2024 Patient Health Questionnaire-9 Score 10 02/11/2024 Last PHQ-9: Questionnaire Data Not on file 0 02/11/2024 Housing Stability Answer Date Recorded What is your housing situation today? I have fabian marquez 02/11/[address] you li ve. Do you have problems with any of the following? None of the above 02/11/2024 Food Insecurity Answer Date Recorded Within the past 12 months, y ou worried that your food would run out before you got money to buy more: Sometimes True 2023 Within the past 12 months,th e food you bought just didn't last and you didn't have enough money to get more: Sometimes True 02/11/2024 Transportation Answer Date Recorded In the past 12 months, has l ack of transportation kept you from medical appts, meetings, work or from getting things needed for daily living? No 02/11/2024 Utilities Answer Date Recorded In the past 12 months, has t he electric, gas, oil or water company threatened to shut off services in your home? I am not sure 02/11/2024 Depression Answer Date Recorded Patient Health Questionnaire-2 Score 2 02/11/2024 Internet Access Answer Date Recorded Internet Access Q1 Yes 02/11/2024 Internet Access Q2 Not on file 02/11/2024 Comments Unknown Sex and Gender Information Value Date Recorded Sex Assigned at Female 03/13/2022 10:14 AM EDT Legal Sex Female 10:14 AM EDT Gender Identity Female 03/13/2022 10:14 AM EDT Sexual Orientation Straight 03/13/2022 10 :14 AM EDT documented as of this encounter Plan of Treatment Upcoming Encounters Date Type Department Care Team (Late st Contact Info) Description 07/10/2024 1:45 PM EST Office Visit [facility] [address] [place] [address] Rajni Barroso, OD [address] [place] [address] documented as of this encounter Procedures Procedure Name Priority Date/Time Associated Diagnosis Comments SARS COV2/INFLUENZA A/B AND RSV RNA QL NAAT Routine 06/27/2024 12:01 PM EST documented in this encounter Results * (ABNORMAL) SARS-CoV-2 RNA, Influenza A/B, and RSV RNA, Ql NAAT (06/27/2024 12:01 PM EST) Influenza A PCR NEGATIVE Negative [facility] Influenza B PCR POSITIVE(A) Negative [facility] Resp Syncy Virus RNA Qual PCR NEGATIVE Negative [facility] SARS COV2 PCR NEGATIVE Negative [facility] Comment:All test results mus t be correlated with clinical findings.Negative results do not preclude SARS-CoV2, influenza Avirus, influenza B virus and/or RSV infectionand should not be used as the sole basis for treatment orother patient management decisions. Negative results must becombined with clinical observations, patient history, andepidemiological information.This test has not been evaluated for monitoring treatment ofinfection.This test has been authorized by the FDA under an EmergencyUse Authorization (EUA) for use by authorized laboratories.Testing performed on the [employer] GeneXpert utilizingreal-time RT-PCR.All SARS CoV2 and positive influenza A/B results arereported to [facility]. 06/27/2024 12:0 1 PM EST 06/27/2024 12:25 PM EST us Generic External Data Provider LAB MICROBIOLOGY - GENERAL ORDERABLES Final Result [facility] [address] [place] [address] [phone] documented in this encounter Visit Diagnoses Not on filedocumented in this encounter Additional Health Concerns Assessment Noted Time PHQ-9 Depression Total Score: 10 024 2:36 PM EDT documented as of this encounter Care Teams Supervisor Policy Change Clerks Relationship Specialty Start Date End Date Arlene Mayes NP [address] [place] [id number] PCP - General Family Medicine 06/21/23 documented as of this encounter
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
--- OUTSIDE RECORDS SUMMARY | 2024-06-27 13:54 | XMS_ITS | Clinical Summary ---
Author Organization [facility] it[facility] Address [address] [place] [address] Care Team Providers Care Tennis Ball Coverer Hand Name Role Phone Unavailable Primary Care Provider Unavailabl e Social History Tobacco Use Types Packs/Day Years Used Date Smoking Tobacco: Never Assessed Comments Unknown Sex and Gender Information Value Date Recorded Sex Assigned at Not on file Legal Sex Female 5:45 AM EST Gender Identity Not on file Sexual Orientation Not on file Plan of Treatment Health Maintenance Due Date Last Done Comments DTaP,Tdap,and Td Vaccines (1 - Tdap) 2011 Hepatitis B Vaccines (1 of 3 - 19+ 3-dose series) 2011 Cervical Cancer Screening: P ap Smear 2013 COVID-19 Vaccine ( - 2023-2 5 season) 2024 Influenza Vaccine (#1) 2024 HIB Vaccines Aged Out No longer eligi ble based on patient's age to complete this topic HPV Vaccines Aged Out No longer eligi ble based on patient's age to complete this topic Hepatitis A Vaccines Aged Out No long er eligible based on patient's age to complete this topic IPV Vaccines Aged Out No longer eligi ble based on patient's age to complete this topic MMR Vaccines Aged Out No longer eligi ble based on patient's age to complete this topic Meningococcal ACWY Vaccine Aged Out N o longer eligible based on patient's age to complete this topic Pneumococcal Vaccine: Pediat rics (0 to 5 Years) and At-Risk Patients (6 to 64 Years) Aged Out No longer eligible b ased on patient's age to complete this topic RSV Immunization Patients Un yan 20 months Aged Out No longer eligible b ased on patient's age to complete this topic Varicella Vaccines Aged Out No longer eligible based on patient's age to complete this topic
--- OUTSIDE RECORDS SUMMARY | 2024-06-27 13:54 | XMS_ITS | Encounter Summary ---
Author Organization [employer] Address [address] [place] [address] Care Team Providers Care Recreational Aide Name Role Phone PriyankArlene deluna SRIKANTH Primary Care Provider Encounter Details Date Type Department Care Team (Late Contact Info) Description 12/07/2023 Telephone [facility] [address] [place] [address] Ephraim Sal DDS [address] [place] [address] Social History Tobacco Use Types Packs/Day Years Used Date Smoking Tobacco: Never Smokeless Tobacco: Never Alcohol Use Standard Drinks/Week Comments Defer 0 (1 standard drink = 0.6 oz pur e alcohol) Comments Unknown Sex and Gender Information Value Date Recorded Sex Assigned at Female 03/13/2022 10:14 AM EDT Legal Sex Female 10:14 AM EDT Gender Identity Female 03/13/2022 10:14 AM EDT Sexual Orientation Straight 03/13/2022 10 :14 AM EDT documented as of this encounter Miscellaneous Notes * Telephone Encounter - Humaira Cortes - 12/07/2023 10:20 AM EDT Good morning can u send patient amoxil ine in li quide patient can not swallow pills . documented in this encounter Plan of Treatment Upcoming Encounters Date Type Department Care Team (Late Contact Info) Description 07/10/2024 1:45 PM EST Office Visit [facility] [address] [place] [address] Rajni Barroso, OD [address] [place] [address] documented as of this encounter Visit Diagnoses Not on filedocumented in this encounter Care Teams Recreational Aide Relationship Specialty Start Date End Date Arlene Mayes NP [address] [place] [address] PCP - General Family Medicine 06/21/23 documented as of this encounter
--- OUTSIDE RECORDS SUMMARY | 2024-06-27 13:54 | XMS_ITS | Encounter Summary ---
Author Organization [employer] Address [address] [facility] [address] [place] [address] Care Team Providers Care Scene Shifter Name Role Phone Arlene Mayes NP Primary Care Provider [phone] Reason for Visit * Reason Onset Date Comments Hospital Follow-up 11/29/2023 Encounter Details Date Type Department Care Team ([facility] st Contact Info) Description 11/29/[address] [facility] [address] [place] [address] Arlene Mayes NP [address] [place] [address] Hospital Follow-up Social History Tobacco Use Types Packs/Day Years Used Date Smoking Tobacco: Never Smokeless Tobacco: Never Comments Unknown Sex and Gender Information Value Date Recorded Sex Assigned at Female 03/13/2022 10:14 AM EDT Legal Sex Female 10:14 AM EDT Gender Identity Female 03/13/2022 10:14 AM EDT Sexual Orientation Straight 03/13/2022 10 :14 AM EDT documented as of this encounter Miscellaneous Notes * Telephone Encounter - Mani Hall RN - 11/29/2023 10:53 AM EDT Please schedule for TP / new pt. Apt. With new PCP. * Telephone Encounter - Mani Hall RN - 11/29/2023 10:52 AM EDT T/C to pt. For below message pt. States she was tested positive for COVID on 11/27, no symptoms, her sister was tested positive, so pt. Test her self and come positive. Pt. Advised to call HHC in case of any concerns. Also advised to go to nearest ED in case of any new or worsening symptoms including CP, SOB or breathing problem. Pt. Schedule for HDF on 12/13. Hospital admission on - 11/23, Discahrge on 11/24 for acute cholecystitis. Discharge kathleen is in pt.;s chart. Pt. Verbally agreed and understood. * Telephone Encounter - Horace Menon - 11/29/2023 8:10 AM EDT Tc from pt requesting to r/s HDF appt. documented in this encounter Plan of Treatment Upcoming Encounters Date Type Department Care Team (Late st Contact Info) Description 07/10/2024 1:45 PM EST Office Visit [facility] [address] [place] [address] Rajni Barroso OD [address] [place] [address] documented as of this encounter Visit Diagnoses Not on filedocumented in this encounter Care Teams Scene Shifter Relationship Specialty Start Date End Date Arlene Mayes NP [address] [place] [address] PCP - General Family Medicine 06/21/23 documented as of this encounter
[2024-06-27 14:03] VITALS: BP 121/80; PULSE 85; RESP 18; TEMP 36.7; O2SAT 99
== END 2024-06-27 14:03 | disposition home or self-care (01) ==
PROVIDERS: Physician Assistant; Emergency Provider Emergency Medicine
DX: J10.1 Influenza due to other identified influenza virus with other respiratory manifestations (principal); M79.10 Myalgia, unspecified site; R51.9 Headache, unspecified; R10.2 Pelvic and perineal pain; R11.2 Nausea with vomiting, unspecified; Z03.818 Encounter for observation for suspected exposure to other biological agents ruled out; Z79.899 Other long term (current) drug therapy
CPT/HCPCS: 0241U; 99282; 99283